=== PATIENT | female | born 1975 | race Caucasian/White ===

== ENCOUNTER → 2017-01-23 | Outpatient (REF) | payer OTHER ==
[~2017-01-23] MED LIST: ASTE0.15; BENZ-52 PO; CALC1TAB5 PO; CALC500T19 PO; CYMB60CA3 PO; DULO30CA PO; FISH1000 PO; FOLI1TAB4 PO; MONT10TA2 PO; MULT1TAB10 PO; OLAN5TAB PO; OMEG1400 PO; PRED10TA2 PO; REST0.05 OU; TRAZO50TA PO; VITA250011 SL; VITA500T3 PO; VITMTA PO; montelukast
[2017-01-23 11:58] LABS: BLOOD UREA NITROGEN 19 MG/DL (7-18); CREATININE FOR GFR 0.83 MG/DL (0.55-1.02); GLOMERULAR FILTRATION RATE > 60.0 (>60)
== END ==
LOC: M LABDRAW1 09:52
PROVIDERS: ATTEND Physical Medicine & Rehabilitation
DX: M47.816 Spondylosis without myelopathy or radiculopathy, lumbar region (principal)

== ENCOUNTER 2017-02-25 22:20 | Emergency (ER) | payer BC, MEDICAID ==
[~2017-02-25] VITALS: Ht 165.1 cm; Wt 82.7 kg
[2017-02-25] MEDS ORDERED: MULT1TAB10 PO (22:42)
[2017-02-25] MEDS ORDERED: VITA250011 SL (22:42)
[2017-02-25] MEDS ORDERED: ASTE0.15 (22:42)
[2017-02-25] MEDS ORDERED: FOLI1TAB4 PO (22:42)
[2017-02-25] MEDS ORDERED: montelukast (22:42)
[2017-02-25] MEDS ORDERED: CALC1TAB5 PO (22:42)
[2017-02-25] MEDS ORDERED: OMEG1400 PO (22:42)
[2017-02-25] MEDS ORDERED: REST0.05 OU (22:42)
[2017-02-26 00:07] VITALS: BP 134/76
[2017-02-26] MEDS ORDERED: VITMTA PO (21:27)
[2017-02-26] MEDS ORDERED: CYMB60CA3 PO (21:27)
[2017-02-26] MEDS ORDERED: VITA500T3 PO (21:27)
[2017-02-26] MEDS ORDERED: CALC500T19 PO (21:27)
[2017-02-26] MEDS ORDERED: FISH1000 PO (21:27)
[2017-02-26] MEDS ORDERED: MONT10TA2 PO (21:27)
[2017-02-26] MEDS ORDERED: PRED10TA2 PO (21:27)
== END 2017-02-26 00:12 | disposition home or self-care (01) ==
LOC: M ED 22:20
DX: F33.8 Other recurrent depressive disorders (principal); F17.210 Nicotine dependence, cigarettes, uncomplicated; Z88.1 Allergy status to other antibiotic agents; Z88.8 Allergy status to other drugs, medicaments and biological substances; Z88.5 Allergy status to narcotic agent; Z91.041 Radiographic dye allergy status; Z79.899 Other long term (current) drug therapy

== ENCOUNTER 2017-02-26 17:37 | Inpatient (IN) | payer BC, MEDICAID ==
[~2017-02-26] VITALS: Ht 165.1 cm; Wt 80.3 kg
[~2017-02-26 17:37] MED LIST changes: -BENZ-52 PO; -CALC500T19 PO; -CYMB60CA3 PO; -DULO30CA PO; -FISH1000 PO; -MONT10TA2 PO; -OLAN5TAB PO; -PRED10TA2 PO; -TRAZO50TA PO; -VITA500T3 PO; -VITMTA PO
[2017-02-26 19:13] LABS: MEAN CORPUSCULAR HEMOGLOBIN 32.3 pg (27.0-33.0); MEAN CORPUSCULAR VOLUME 92.1 fl (80.0-96.0); RED CELL DISTRIBUTION WIDTH 13.2 % (11.5-14.5)
[2017-02-26 19:36] LABS: CONTROL LINE HCG INT CTR LINE PRESENT
[2017-02-26 19:39] LABS: METHADONE URINE NEGATIVE (NEGATIVE)
[2017-02-26 19:47] LABS: ALBUMIN 3.9 GM/DL (3.2-5.2); ALBUMIN/GLOBULIN RATIO 1.39 (1.00-1.93); ALKALINE PHOSPHATASE 60 U/L (45-117); ALT/SGPT 21 U/L (12-78); ANION GAP 9 MEQ/L (8-16); AST/SGOT 10 U/L (15-37); BILIRUBIN,DIRECT 0.2 MG/DL (0.0-0.2); BILIRUBIN,TOTAL 0.6 MG/DL (0.2-1.0); BLOOD UREA NITROGEN 10 MG/DL (7-18); CALCIUM LEVEL 8.7 MG/DL (8.5-10.1); CARBON DIOXIDE LEVEL 26 MEQ/L (21-32); CHLORIDE LEVEL 106 MEQ/L (98-107); CREATININE FOR GFR 0.83 MG/DL (0.55-1.02); GLOMERULAR FILTRATION RATE > 60.0 (>60); GLUCOSE, FASTING 123 MG/DL (70-105); POTASSIUM SERUM 3.8 MEQ/L (3.5-5.1); SODIUM LEVEL 141 MEQ/L (136-145); TOTAL PROTEIN 6.7 GM/DL (6.4-8.2)
[2017-02-26] MEDS ORDERED: LORazepam 1 MG TAB PO ONE (20:30)
[2017-02-26] MEDS ORDERED: VITMTA PO (21:27)
[2017-02-26] MEDS ORDERED: CYMB60CA3 PO (21:27)
[2017-02-26] MEDS ORDERED: FISH1000 PO (21:27)
[2017-02-26] MEDS ORDERED: CALC500T19 PO (21:27)
[2017-02-26] MEDS ORDERED: MONT10TA2 PO (21:27)
[2017-02-26] MEDS ORDERED: PRED10TA2 PO (21:27)
[2017-02-26] MEDS ORDERED: VITA500T3 PO (21:27)
[2017-02-26] MEDS ORDERED: MOM 30ML SUSPENSION UDC PO PRN (21:30)
[2017-02-26] MEDS ORDERED: MAALOX 30 ML SUSP *UDC PO PRN (21:30)
[2017-02-26 23:00] VITALS: BP 124/76
[2017-02-27 07:23] VITALS: BP 127/55
[2017-02-27] MEDS: DULoxetine 30 MG CAP (CYMBALTA) PO SCH ×2 (09:00→12:47)
[2017-02-27] MEDS ORDERED: POLYVINYL ALCOHOL OPHTH SOLN 15 ML(LIQUITEARS) OU PRN (10:15)
--- NOTE | 2017-02-27 10:26 | HPEPDOC ---
Medical History and Physical Date of Admission Feb 26, 2017 at 21:22 History and Physical PCP: Dr Esqueda ATTENDING: Dr. Carlos Maloney HPI: 41 yo F admitted to [facility] for unspecified psychotic disorder, being medically examined today. No acute medical complaints today. The patient has a difficult time answering questions, much of history is taken from the chart. Denies any fevers, chills, weakness, fatigue, FLORES, CP, SOB, cough, palpitations , abdominal pain, N/V/D or changes in bowel or bladder habits. PMHx: Dry eye Allergic rhinitis Asthma Lupus/arthritis/fibromyalgia. Dr Hooks. Rheumatology [facility] Depression Anxiety Chronic back pain. Dr Cuco HOPKINS. PSHX: 2 Cholecystectomy Cyst removed left ovary Lumbar injections SOCHX: Resides in: [facility]. Living with girlfriend. Marital Status: Kids: 2. Girlfriend has 2 children living with them as well. Employment: Unemployed, Worker's Compensation for low back pain Tobacco use: Denies ETOH: One time per year, Pt states "whatever". Illicit Drugs: Marijuana 1 IV Drug Use: Denies Tattoos done unprofessionally: Denies FAMHX: Mother: Unknown Father: Alive, hypertension Siblings: One sister Alive, well Children: Alive, well Unexpected deaths due to medical reasons: None. ROS: As noted in HPI, otherwise 11pt ROS of systems reviewed and remarkable only for LMP unknown. PE: GEN: 41yoF, appears stated age. Well-nourished, well developed. No acute distress. Alert and oriented x 3. Tangential, difficult to answer questions. HEENT: Normocephalic, atraumatic. Pupils are equal, round, and reactive to light. Extraocular movements are intact. No nystagmus appreciated. Sclera are nonicteric. Conjunctiva without injection. Nose midline. Nasal turbinates without bogginess. EACs both patent BL. TMs both visualized and dias with good cone of light, no bulging or erythema. No facial asymmetry. Moist mucous membranes. Dentition fair. Pharynx pink and moist, no cobblestoning. Neck supple , trachea midline. No lymphadenopathy or thyromegaly appreciated. CHEST: Regular rate and rhythm, +S1, +S2 LUNGS: Clear to auscultation bilaterally. No wheezes, rales, or rhonchi. Breathing appears symmetric and easy. Patient is speaking in full sentences. No accessory muscle use. ABD: Round, soft, non-tender, non-distended. +Bowel sounds throughout. No rebound or guarding. No costovertebral angle tenderness. EXT: Pulses 2+ bilaterally dorsalis pedis and radial. No lower extremity edema appreciated. SKIN: [place], dry, warm. Capillary refill <2sec. No rashes. NEURO: Alert and oriented x 3. Cranial nerves III-XII are intact. No focal deficits appreciated. EKG: pending. A&P: 41 yo F admitted to [facility] for unspecified psychotic disorder 1. Psych. Plan per Psychiatry. Obtain baseline EKG to assure the safety of psychiatric medications as they can prolong the QT interval. Request UA/urine culture. Patient with no prior imaging available, request CT scan brain. 2. Leukocytosis. Patient is afebrile. Asymptomatic. Recheck CBC in a.m. 3. Allergic rhinitis. Continue Azelastine. Continue Singulair 10 mg daily. 4. Follow up with PCP on discharge. 5. History of lupus/arthritis/fibromyalgia. Patient states she uses prednisone 10 mg as needed for flareups of her lupus. She has not been taking this recently per patient. 6. History of chronic low back pain. Continue Tylenol 650 mg every 6 hours as needed. Continue outpatient follow-up with Dr. oNrwood [facility], for pain management. 7. Dry eyes. Continue artificial tears 3 times a day as needed. 8. Staff member Shannan TOURE present throughout exam. Vital Signs Vital Signs Date Time Temp Pulse Resp B/P (MAP) Pulse Ox O2 Delivery O2 Flow Rate FiO2 02/27/17 07:23 98.4 88 18 127/55 (79) Room Air 02/26/17 23:00 100 Laboratory Data Labs 24H Laboratory Tests 2 02/26/17 18:54: Anion Gap 9, Glomerular Filtration Rate > 60.0, Calcium Level 8.7, Aspartate Amino Transf (AST/SGOT) 10L, Alanine Aminotransferase (ALT/SGPT) 21, Alkaline Phosphatase 60, Total Bilirubin 0.6, Direct Bilirubin 0.2, Total Protein 6.7, Albumin 3.9, Albumin/Globulin Ratio 1.39, Thyroid Stimulating Hormone (TSH) 0.494, Human Chorionic Gonadotropin, Qual NEGATIVE, Salicylates Level < 1.7L, Urine Amphetamines Screen NEGATIVE, Urine Benzodiazepines Screen NEGATIVE, Urine Opiates Screen NEGATIVE, Urine Methadone Screen NEGATIVE, Acetaminophen Level < 2.0L, Urine Barbiturates Screen NEGATIVE, Urine Phencyclidine Screen NEGATIVE, Urine Cocaine Metabolite Screen NEGATIVE, Urine Cannabinoids Screen NEGATIVE, Ethyl Alcohol Level < 0.003 CBC/BMP Laboratory Tests 02/26/17 18:54 Red Blood Count 4.78, Mean Corpuscular Volume 92.1, Mean Corpuscular Hemoglobin 32.3, Mean Corpuscular Hemoglobin Concent 35.0, Red Cell Distribution Width 13.2 Home Medications Scheduled Azelastine Hydrochloride (Astepro) 0.15 % Spr, 2 SPRAY NA DAILY Calcium/Vitamin D (Calcium 500/D 500-200 mg-Unit) 1 Tab Tab, 1 TAB PO DAILY Cyanocobalamin (Vitamin B-12) 500 Mcg Tab, 500 MCG PO QHS Duloxetine Hcl (Cymbalta) 60 Mg Cap, 60 MG PO DAILY Fish Oil (Fish Oil) 1,000 Mg Cap, 1,000 MG PO QHS Folic Acid (Folic Acid) 1 Mg Tab, 1 MG PO QHS Montelukast Sodium (Montelukast Sodium) 10 Mg Tab, 10 MG PO QHS Multivitamins *[facility] STOCKED* (Thera M Plus *[facility] STOCKED*) 1 Tab Tab, 1 TAB PO DAILY Scheduled PRN (Restasis) 0.05 % Emu, 1 DROP OU BID PRN for DRY EYES Prednisone (Prednisone) 10 Mg Tab, 10 MG PO ASDIRECTED PRN for LUPUS FLAREUPS DOCTOR WILL STATE HOW MANY TABLETS TO TAKE BASED ON HOW BAD THE FLAREUPS ARE Allergies Coded Allergies: Iodipamide Meglumine (Verified Allergy, Severe, 02/25/17) Contrast Media (Verified Allergy, Intermediate, 02/25/17) Cyclobenzaprine (Verified Allergy, Intermediate, 02/25/17) Hydroxychloroquine (Verified Allergy, Intermediate, 02/25/17) Sulindac (Verified Allergy, Intermediate, 02/25/17) Tramadol (Verified Allergy, Intermediate, 02/25/17) Amoxicillin (Verified Allergy, Mild, 02/25/17) Barbara Chahal Feb 27, 2017 10:26
--- NOTE | 2017-02-27 12:19 | REP ---
CT Head without contrast HISTORY: Altered mental status COMPARISON: None There is no intraparenchymal hemorrhage, acute infarct, mass or midline shift. The ventricular system is normal in appearance. There is no extra cerebral collection. There is no fracture. The visualized sinuses are clear. IMPRESSION: There is no intracranial lesion. Signed by Myke Trammell MD 02/27/2017 12:11 P
[2017-02-27] MEDS: AZELASTINE 137MCG NASAL SPY 30 ML (ASTELIN) SCH (12:47)
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
[2017-02-27 18:00] VITALS: BP 118/62
[2017-02-27] MEDS: traZODone 50 MG TAB PO PRN (21:07)
[2017-02-27] MEDS: MONTELUKAST 10 MG TAB PO SCH (21:07)
[2017-02-27] MEDS: ACETAMINOPHEN TAB 650MG DOSE (2X325MG) PO PRN (21:13)
--- NOTE | 2017-02-27 21:54 | ECGEPIP ---
Stationary ECG Study [facility] Test Date: 2017-02-27 Pat Name: MESERET ADAMS Department: Room: [place] [address] Gender: F Christmas Bell Ringer: DEMARCO : 1975 Requested By: Barbara Chahal Order Number: [id number] Reading MD: Lasha Mathis Measurements Intervals [place] Rate: 65 P: 53 MD: 153 QRS: 52 QRSD: 86 T: 31 QT: 414 QTc: 431 Interpretive Statements SINUS RHYTHM MINIMAL EARLY REPOLARIZATION NOTED NO PRIOR TRACING IN THE SYSTEM Electronically Signed On 02-27-2017 21:53:59 EDT by Lasha Mathis
[2017-02-28] MEDS ORDERED: LORazepam 2 MG TAB PO ONE (06:15)
[2017-02-28] MEDS ORDERED: HALOPERIDOL 5 MG TAB PO ONE (06:15)
[2017-02-28] MEDS ORDERED: diphenhydrAMINE 50 MG CAP PO ONE (06:15)
[2017-02-28 07:00] VITALS: BP 122/92
[2017-02-28 08:00] LABS: BASO # 0.1 K/mm3 (0.0-0.2); BASO % 0.6 % (0.0-1.0); EOS % 0.5 % (0.0-3.0); LARGE UNSTAINED CELL # 0.1 K/mm3 (0.0-0.4); LARGE UNSTAINED CELL % 0.7 % (0.0-4.0); LYMPH # 1.8 K/mm3 (1.5-4.5); LYMPH % 16.8 % (24.0-44.0); MEAN CORPUSCULAR HEMOGLOBIN 33.2 pg (27.0-33.0); MEAN CORPUSCULAR HGB CONC 35.9 g/dl (32.0-36.5); MEAN CORPUSCULAR VOLUME 92.6 fl (80.0-96.0); MONO # 0.6 K/mm3 (0.0-0.8); MONO % 5.4 % (0.0-5.0); PLATELET COUNT, AUTOMATED 227 k/mm3 (150-450); RED CELL DISTRIBUTION WIDTH 13.3 % (11.5-14.5); WHITE BLOOD COUNT 10.5 K/mm3 (4.0-10.0)
[2017-02-28] MEDS ORDERED: ARIPiprazole 2 MG TAB PO SCH (09:00)
[2017-02-28] MEDS: AZELASTINE 137MCG NASAL SPY 30 ML (ASTELIN) SCH (09:00)
[2017-02-28] MEDS: DULoxetine 30 MG CAP (CYMBALTA) PO SCH (09:38)
[2017-02-28 11:47] LABS: MICROSCOPIC INDICATED? MAN YES (NO)
[2017-02-28 11:50] LABS: MICROSCOPIC EXAM PERFORMED
[2017-02-28 11:51] LABS: BACTERIA, URINE LARGE AMOUNT; HYALINE CAST, URINE NONE SEEN /lpf (0-1); SQUAMOUS EPITHELIAL CELL URINE LARGE AMOUNT /hpf (SMALL AMT); WBC, URINE 0-1 /hpf (0-3)
--- NOTE | 2017-02-28 13:58 | MHIPNPDOC ---
[facility] Progress Note Progress Note DATE OF SERVICE: 02/28/17 HISTORY: day 3 of admission for gross decompensation including depression with psychosis. Pt has h/o bipolar disorder. VITAL SIGNS: See below. NEW TEST RESULTS: na CURRENT MEDICATIONS: See below. MENTAL STATUS EXAMINATION: Patient is a 41-year old female, who is petite, appears frightened like a deer in headlights, is internally preoccupied and focused and unable to function even marginally well. Speech: Is soft and delayed responses Language skills are adequate Thought processes including: disorganized, illogical, tangential, irrational. some thought blocking evident. Thought content: paranoid, self-condemning. Abstract reasoning, and computation : poor. Description of associations: needs further assessment. Description of abnormal or psychotic thoughts: pt stripped naked for unknown reason several times last night, pt required oral medication for calming, pt not in control of actions, pt clearly psycohtic and unable to care for self.. Judgment: impaired Insight:very limited. Orientation: Recent and remote memory: impaired Attention span and concentration: poor Fund of knowledge: impaired. Mood: anxious. Affect: congruent DIAGNOSES: 1. Bipolar disorder, current episode depressed, recurrent with psychotic features. 2. Panic disorder by history 3. H/o Alcohol abuse ASSESSMENT:pt moved to room closer to nurses station. pt in bed with covers around her when meeting for 1:1. She continues to express paranoia and fear of the future. She was awake much of the night disrobing. Staff was very attentive to her needs and prn agitation meds were provided and accepted by pt including Haldol. She calmed but remains grossly disorganized and paranoid. Pt was assisted with showering today. She has been placed on 1:1 observation after her difficult night last night but that can be discontinued now after my second meeting with her today. She presents as a little more oriented and aware of her surroundings. Her conversation made more sense than yesterday. Pt encouraged to rest while medications take effect and until she feels more clear headed. Her was contacted for collateral information. He reports that using olanzapine has helped her thought process to clear. He has known about her condition as she was dx at 21 yo with Bipolar disorder. He states she has had her ups and downs, including 4 psych admissions, 2 in [place] and 2 in [place]. She visited him in [place] over Leanne with the children. He is attending school in [place] and nearly finished. He indicates that the plan was Crystal and the children would be returning to [place] when he was done with school and he confirms that was the plan prior to admission. It is unclear if Lesley was living at the home over the last couple months. It is possible that in the process of terminating the relationship with Lesley, Ellen decompensated from the stress. Also her adherence to medication appears in question. Records from [facility] have not been received as of this writing. MANAGEMENT PLAN: discontinue Abilify, replace with Olanzapine at 5 mg. Begin tonight. change observation from to 1:1 back to close obs. Continue reassurance that patient will get better. Reassure her that her children are safe, they are staying with their Uncle. I have changed the order permitting Lesley to visit to no visitation. Pt needs to become more integrated emotionally before having visitors and Lesley falls under the 6 week restriction. Monitor PO intake to ensure pt eats at most meals. Enc her to be out of room as tolerated. TIME SPENT: 25 minutes. Vital Signs Vital Signs Date Time Temp Pulse Resp B/P (MAP) Pulse Ox O2 Delivery O2 Flow Rate FiO2 02/28/17 07:00 97.9 91 18 122/92 (102) 02/27/17 07:23 Room Air 02/26/17 23:00 100 Laboratory Data 24H Labs Laboratory Tests 2 02/28/17 07:29: White Blood Count 10.5H, Red Blood Count 4.67, Hemoglobin 15.5, Hematocrit 43.2 , Mean Corpuscular Volume 92.6, Mean Corpuscular Hemoglobin 33.2H, Mean Corpuscular Hemoglobin Concent 35.9, Red Cell Distribution Width 13.3, Platelet Count 227, Neutrophils (%) (Auto) 76.0H, Lymphocytes (%) (Auto) 16.8L, Monocytes (%) (Auto) 5.4H, Eosinophils (%) (Auto) 0.5, Basophils (%) (Auto) 0.6 , Neutrophils # (Auto) 8.0H, Lymphocytes # (Auto) 1.8, Monocytes # (Auto) 0.6, Eosinophils # (Auto) 0.0, Basophils # (Auto) 0.1, Large Unclassified Cells % 0.7 , Large Unclassified Cells # 0.1 02/28/17 10:10: Bedside Urine Color (LAB) YELLOW, Bedside Urine Appearance (LAB) HAZYH, Bedside Urine pH (LAB) 5.5, Bedside Urine Specific Rubicon (LAB 1.018, Bedside Urine Protein (LAB) NEGATIVE, Bedside Urine Glucose (UA) NEGATIVE, Bedside Urine Ketones (LAB) NEGATIVE, Bedside Urine Blood POSITIVEH, Bedside Urine Nitrite ( LAB) NEGATIVE, Bedside Urine Bilirubin (LAB) NEGATIVE, Bedside Urine Urobilinogen (LAB) NORMAL, Bedside Urine Leukocyte Esterase (L NEGATIVE, Urine WBC 0-1, Urine RBC 3-5H, Urine Squamous Epithelial Cells LARGE AMOUNTH, Urine Bacteria LARGE AMOUNTH, Urine Hyaline Casts NONE SEEN, Urine Mucus LARGE AMOUNTH , Urine Sediment Examination PERFORMED CBC/BMP Laboratory Tests 02/28/17 07:29 Red Blood Count 4.67, Mean Corpuscular Volume 92.6, Mean Corpuscular Hemoglobin 33.2 H, Mean Corpuscular Hemoglobin Concent 35.9, Red Cell Distribution Width 13.3, Neutrophils (%) (Auto) 76.0 H, Lymphocytes (%) (Auto) 16.8 L, Monocytes (% ) (Auto) 5.4 H, Eosinophils (%) (Auto) 0.5, Basophils (%) (Auto) 0.6, Neutrophils # (Auto) 8.0 H, Lymphocytes # (Auto) 1.8, Monocytes # (Auto) 0.6, Eosinophils # (Auto) 0.0, Basophils # (Auto) 0.1 Current Medications Current Medications Acetaminophen (Tylenol Tab) 650 mg Q6HP PRN PO HEADACHE or DISCOMFORT Last administered on 02/27/17 21:13; Start 02/26/17 at 21:30; Stop 03/28/17 at 21:29 Al Hydrox/Mg Hydrox/Simethicone (Mylanta) 30 ml Q4HP PRN PO HEARTBURN/ INDIGESTION; Start 02/26/17 at 21:30; Stop 03/28/17 at 21:29 Aripiprazole (AbiLIFY) 2 mg QAM PO Last administered on 02/28/17 09:37; Start 02/28/17 at 09:00; Stop 02/28/17 at 12:15; Status DC Artificial Tears (Akwa Tears) 2 drop TIDP PRN OU DRY EYES; Start 02/27/17 at 10 :15; Stop 03/29/17 at 10:14 Azelastine HCl (Astelin) 2 spray DAILY NA Last administered on 02/27/17 12:47 ; Start 02/27/17 at 09:00; Stop 03/29/17 at 08:59 Duloxetine HCl (Cymbalta) 60 mg QAM PO Last administered on 02/28/17 09:38; Start 02/27/17 at 09:00; Stop 03/29/17 at 08:59 Home Med (Med Rec Complete!) ASDIRECTED XX ; Start 02/26/17 at 21:30; Stop at 21:30; Status DC Magnesium Hydroxide (Milk Of Magnesia) 30 ml DAILYPRN PRN PO CONSTIPATION Last administered on 02/27/17 21:07; Start 02/26/17 at 21:30; Stop 03/28/17 at 21:29 Montelukast Sodium (Singulair) 10 mg QHS PO Last administered on 02/27/17 21: 07; Start 02/27/17 at 21:00; Stop 03/29/17 at 20:59 Olanzapine (ZyPREXA) 5 mg QHS PO ; Start 02/28/17 at 21:00; Stop 03/30/17 at 20: 59 Trazodone HCl (Desyrel) 50 mg QHSP PRN PO INSOMNIA Last administered on 21:07; Start 02/26/17 at 21:30; Stop 03/28/17 at 21:29 Allergies Coded Allergies: Iodipamide Meglumine (Verified Allergy, Severe, 02/25/17) Contrast Media (Verified Allergy, Intermediate, 02/25/17) Cyclobenzaprine (Verified Allergy, Intermediate, 02/25/17) Hydroxychloroquine (Verified Allergy, Intermediate, 02/25/17) Sulindac (Verified Allergy, Intermediate, 02/25/17) Tramadol (Verified Allergy, Intermediate, 02/25/17) Amoxicillin (Verified Allergy, Mild, 02/25/17) Dina Choudhury Feb 28, 2017 13:57
[2017-02-28 18:00] VITALS: BP 130/86
[2017-02-28] MEDS: MONTELUKAST 10 MG TAB PO SCH (22:10)
[2017-02-28] MEDS: OLANZapine 5 MG TAB PO SCH (22:10)
[2017-02-28] MEDS: ACETAMINOPHEN TAB 650MG DOSE (2X325MG) PO PRN (22:11)
[2017-02-28] MEDS: traZODone 50 MG TAB PO PRN (23:47)
[2017-03-01 06:41] VITALS: BP 132/65
[2017-03-01] MEDS: DULoxetine 30 MG CAP (CYMBALTA) PO SCH (09:40)
[2017-03-01] MEDS: AZELASTINE 137MCG NASAL SPY 30 ML (ASTELIN) SCH (09:40)
[2017-03-01 18:27] VITALS: BP 123/89
[2017-03-01] MEDS: MONTELUKAST 10 MG TAB PO SCH (20:31)
[2017-03-01] MEDS: traZODone 50 MG TAB PO PRN (20:31)
[2017-03-01] MEDS: OLANZapine 5 MG TAB PO SCH (20:31)
[2017-03-02] MEDS ORDERED: LORazepam 1 MG TAB PO STA (03:01)
[2017-03-02 06:30] VITALS: BP 109/55
[2017-03-02] MEDS: DULoxetine 30 MG CAP (CYMBALTA) PO SCH (09:23)
[2017-03-02] MEDS: AZELASTINE 137MCG NASAL SPY 30 ML (ASTELIN) SCH (09:23)
[2017-03-02] MEDS ORDERED: OLANZapine ORAL DISINTEGRATING TAB 5MG PO PRN (13:00)
--- NOTE | 2017-03-02 15:02 | MHIPN ---
DATE: 03/01/2017 The patient today states that she is not hearing any voices today. She is really minimizing everything, however, and basically states that she was just feeling a little confused and that is what happens when she gets stressed out. She has no complaints. MENTAL STATUS EXAMINATION: The patient is alert and oriented times three. Eye contact is fair. Psychomotor activity is decreased. There is no formal thought disorder noted. Her mood is "okay." Affect is flat. She is not suicidal or homicidal. She continues to be delusional, although it is less intense at this point. Concentration is fair. Insight and judgment poor. DIAGNOSIS: Bipolar disorder type 1, depressed with psychotic symptoms. TREATMENT PLAN: At this point, we will further observe and evaluate this patient for continued resolution of the psychotic symptoms and we will continue to titrate her medications as indicated.
[2017-03-02 18:32] VITALS: BP 132/71
[2017-03-02] MEDS: OLANZapine 5 MG TAB PO SCH (21:44)
[2017-03-02] MEDS: MONTELUKAST 10 MG TAB PO SCH (21:44)
[2017-03-02] MEDS: traZODone 50 MG TAB PO PRN (21:45)
[2017-03-02] MEDS: ACETAMINOPHEN TAB 650MG DOSE (2X325MG) PO PRN (21:52)
--- NOTE | 2017-03-03 06:35 | MHIPN ---
DATE: 03/02/2017 The patient states "I'm doing pretty good" and she says that she is feeling some anxiety and wants me to prescribe something for anxiety. Her thinking does appear to be less disorganized today. MENTAL STATUS EXAMINATION: She is alert and oriented times three. Eye contact is fair. Psychomotor activity is normal. There is no formal thought disorder noted. Mood is good. She appears to be less delusional. Concentration is fair, not suicidal or homicidal. Insight and judgment are fair. DIAGNOSIS: Bipolar disorder type 1, depressed, recurrent with psychotic symptoms. TREATMENT PLAN: She is complaining of anxiety so I did write for as needed Zyprexa 5 mg. She is already on Zyprexa 5 mg at bedtime. We will continue to monitor her for continued resolution of her psychotic symptoms. Edited 03/03/2017 @ 1322 surinder CONKLIN
[2017-03-03 07:09] VITALS: BP 118/69
[2017-03-03] MEDS: DULoxetine 30 MG CAP (CYMBALTA) PO SCH (08:15)
[2017-03-03] MEDS: AZELASTINE 137MCG NASAL SPY 30 ML (ASTELIN) SCH (08:15)
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
[2017-03-03] MEDS: ACETAMINOPHEN TAB 650MG DOSE (2X325MG) PO PRN (09:55)
[2017-03-03] MEDS ORDERED: BENZTROPINE 1 MG TAB PO PRN (11:30)
[2017-03-03 18:00] VITALS: BP 122/73
[2017-03-03] MEDS: OLANZapine 5 MG TAB PO SCH (20:49)
[2017-03-03] MEDS: MONTELUKAST 10 MG TAB PO SCH (20:50)
[2017-03-03] MEDS ORDERED: OLANZapine 10 MG TAB PO SCH (21:00)
[2017-03-04] MEDS: traZODone 50 MG TAB PO PRN
[2017-03-04 06:55] VITALS: BP 125/74
[2017-03-04] MEDS ORDERED: BENZTROPINE 1 MG TAB PO PRN (08:30)
[2017-03-04] MEDS: AZELASTINE 137MCG NASAL SPY 30 ML (ASTELIN) SCH (08:33)
[2017-03-04] MEDS: DULoxetine 30 MG CAP (CYMBALTA) PO SCH (08:33)
[2017-03-04] MEDS: ACETAMINOPHEN TAB 650MG DOSE (2X325MG) PO PRN ×2 (11:26→21:29)
--- NOTE | 2017-03-04 12:51 | MHIPNPDOC ---
[facility] Progress Note Progress Note DATE OF SERVICE: 03/04/17 HISTORY: day 7 of admission for psychosis/depression VITAL SIGNS: See below. NEW TEST RESULTS: na. CURRENT MEDICATIONS: See below. MENTAL STATUS EXAMINATION: Patient is a 41-year old female, who is appropriately attired in street clothes , well groomed, smiling, good eye contact. Speech: Is logical, clear, spontaneous. Language skills are good. Thought processes including: goal directed. No thought blocking as before. Thought content: appropriate. Abstract reasoning, and computation: good . Description of associations: good. Description of abnormal or psychotic thoughts: no delusions, paranoia or FOI. Pt is not DTS or DTO. Judgment: good. Insight: good, Orientation: oriented in all spheres. Recent and remote memory: intact Attention span and concentration: limited, easily fatigued and stressed. Fund of knowledge: Improving, approaching full. Mood: anxious. Affect: anxious DIAGNOSES: 1. Bipolar disorder, current episode depressed, recurrent with psychotic features. 2. Panic disorder by history 3. H/o Alcohol abuse ASSESSMENT:pt is very much improved since the introduction of Zyprexa. The medication causes some akathesia and Cogentin has helped her feel more relaxed. She slept well last night. She is preparing for discharge and attended team conference today. The plan is to have her family come in so we discuss a stress free living situation for Ellen after discharge. We will try to get an understanding in place of what needs to happen to keep Ellen from returning to the hospital. Pt is agreeable to taking Zyprexa as prescribed after discharge. She needs help with limit setting and putting herself first during this time. Pt is future oriented, better organized in her thinking and able to formulate plans. She is visible on the unit and gets along well with all. No inappropriate behaviors or bizarre statements. No longer religiously preoccupied. MANAGEMENT PLAN: continue meds, monitor akathesia, continue close observation, group participation, milieu therapy, good attention to hygiene. We are in the process of scheduling a discharge planning meeting that hopefully will happen this week. TIME SPENT: 25 minutes. Vital Signs Vital Signs Date Time Temp Pulse Resp B/P (MAP) Pulse Ox O2 Delivery O2 Flow Rate FiO2 03/04/17 06:55 97.5 62 16 125/74 (91) Room Air 02/26/17 23:00 100 Current Medications Current Medications Acetaminophen (Tylenol Tab) 650 mg Q6HP PRN PO HEADACHE or DISCOMFORT Last administered on 03/04/17 11:26; Start 02/26/17 at 21:30; Stop 03/28/17 at 21:29 Al Hydrox/Mg Hydrox/Simethicone (Mylanta) 30 ml Q4HP PRN PO HEARTBURN/ INDIGESTION; Start 02/26/17 at 21:30; Stop 03/28/17 at 21:29 Aripiprazole (AbiLIFY) 2 mg QAM PO Last administered on 02/28/17 09:37; Start 02/28/17 at 09:00; Stop 02/28/17 at 12:15; Status DC Artificial Tears (Akwa Tears) 2 drop TIDP PRN OU DRY EYES; Start 02/27/17 at 10 :15; Stop 03/29/17 at 10:14 Azelastine HCl (Astelin) 2 spray DAILY NA Last administered on 03/04/17 08:33 ; Start 02/27/17 at 09:00; Stop 03/29/17 at 08:59 Benztropine Mesylate (Cogentin) 1 mg Q8HP PRN PO EPS Last administered on 22:12; Start 03/03/17 at 11:30; Stop 03/04/17 at 08:25; Status DC Benztropine Mesylate (Cogentin) 2 mg Q8HP PRN PO EPS; Start 03/04/17 at 08:30; Stop 04/03/17 at 08:29 Duloxetine HCl (Cymbalta) 60 mg QAM PO Last administered on 03/04/17 08:33; Start 02/27/17 at 09:00; Stop 03/29/17 at 08:59 Home Med (Med Rec Complete!) ASDIRECTED XX ; Start 02/26/17 at 21:30; Stop at 21:30; Status DC Lorazepam (Ativan) 1 mg STAT STAT PO Last administered on 03/02/17 03:07; Start 03/02/17 at 03:01; Stop 03/02/17 at 03:02; Status DC Magnesium Hydroxide (Milk Of Magnesia) 30 ml DAILYPRN PRN PO CONSTIPATION Last administered on 02/27/17 21:07; Start 02/26/17 at 21:30; Stop 03/28/17 at 21:29 Montelukast Sodium (Singulair) 10 mg QHS PO Last administered on 03/03/17 20: 50; Start 02/27/17 at 21:00; Stop 03/29/17 at 20:59 Olanzapine (ZyPREXA ZYDIS) 5 mg Q4HP PRN PO ANXIETY/AGITATION Last administered on 03/02/17 15:55; Start 03/02/17 at 13:00; Stop 04/01/17 at 12:59 Olanzapine (ZyPREXA) 5 mg QHS PO Last administered on 03/02/17 21:44; Start at 21:00; Stop 03/03/17 at 09:15; Status DC Olanzapine (ZyPREXA) 5 mg QHS PO Last administered on 03/03/17 20:49; Start at 21:00; Stop 04/02/17 at 20:59 Olanzapine (ZyPREXA) 10 mg QHS PO ; Start 03/03/17 at 21:00; Stop 04/02/17 at 20 :59; Status Cancel Trazodone HCl (Desyrel) 50 mg QHSP PRN PO INSOMNIA Last administered on 00:00; Start 02/26/17 at 21:30; Stop 03/28/17 at 21:29 Allergies Coded Allergies: Iodipamide Meglumine (Verified Allergy, Severe, 02/25/17) Contrast Media (Verified Allergy, Intermediate, 02/25/17) Cyclobenzaprine (Verified Allergy, Intermediate, 02/25/17) Hydroxychloroquine (Verified Allergy, Intermediate, 02/25/17) Sulindac (Verified Allergy, Intermediate, 02/25/17) Tramadol (Verified Allergy, Intermediate, 02/25/17) Amoxicillin (Verified Allergy, Mild, 02/25/17) Dina Choudhury Mar 04, 2017 12:51
[2017-03-04 18:00] VITALS: BP 136/92
[2017-03-04] MEDS: MONTELUKAST 10 MG TAB PO SCH (20:38)
[2017-03-04] MEDS: OLANZapine 5 MG TAB PO SCH (20:39)
[2017-03-05 06:52] VITALS: BP 117/59
[2017-03-05] MEDS ORDERED: TRAZO50TA PO (08:45)
[2017-03-05] MEDS ORDERED: DULO30CA PO (08:45)
[2017-03-05] MEDS ORDERED: BENZ-52 PO (08:45)
[2017-03-05] MEDS ORDERED: OLAN5TAB PO (08:45)
[2017-03-05] MEDS: AZELASTINE 137MCG NASAL SPY 30 ML (ASTELIN) SCH (09:01)
[2017-03-05] MEDS: DULoxetine 30 MG CAP (CYMBALTA) PO SCH (09:01)
[2017-03-05] MEDS: ACETAMINOPHEN TAB 650MG DOSE (2X325MG) PO PRN (09:03)
--- NOTE | 2017-03-05 14:30 | MHDSPDOC ---
[facility] Discharge Summary Discharge Summary DATE OF ADMISSION: Feb 26, 2017 at 21:22 DATE OF DISCHARGE: Mar 05, 2017 at 11:15 DISCHARGE DIAGNOSES: 1. Bipolar disorder, current episode depressed, recurrent with psychotic features. 2. Panic disorder by history 3. H/o Alcohol abuse 4. Chronic pain REASON FOR ADMISSION: decompensation after med change and increasing stress. CONSULTANTS INVOLVED: Medicine, psychiatry. TREATMENT AND PROGRESS ON THE UNIT : Pt presented very disorganized and thought blocking present. Pt was tangential and illogical at times. She was unable to clearly state her needs. She was using paper towel in her panties during her period. She had stripped off her clothing several times. She would break out in hymn singing. She described herself as full of fear and was religiously preoccupied. After consultation with her she was started on Zyprexa which had been ordered for her in the past but stopped by her provider, Yanna Dill, who did not think Ellen has bipolar disorder. She was also prescribed Phentamine for weight loss associated with Zyprexa. Pt became quite manic - not sleeping, unable to complete what she started, paranoid and overwhelmed. She then became depressed and out of fear for herself and her children she was admitted to the hospital to prevent further decompensation. She reconstituted quite quickly once Zyprexa was in her system. HOSPITAL COURSE:Pts thought process became very clear, much more organized and thought blocking ended. Pt spoke in complete sentences that were logical and meaningful. She had c/o hearing her mothers voice but that stopped. She was no longer religiously preoccupied. She socialized with peers and took good care of her adl's. Her paranoia went away. She was able to participate in discharge planning and agreed to a family meeting. She ate regularly, started to sleep through the night and she showed interest in others. DISCHARGE ASSESSMENT: Her family will support the plan that Ellen has chosen. That is for Ellen and her children to remain with family until her former GF vacates the Apartment that is in Ellen's name. Both Ellen's sister Velma and Brother Ruslan arrived for a discharge planning meeting today. Sister plans to transport Ellen to her home upon discharge and she can visit her children who are at their grandparents. There was some concern during the admission that her GF had friends over to Ellen's apartment and some pot smoking may have been going on. Ellen wants to find out if somehow the GF got herself on the lease and if so she (Ellen) will find a new apartment for next month. She wants some time with just her children to sort out her next move in life. She says she is ready for the divorce and if at sometime she and her get back together than so be it. Her family was supportive and helped her identify warning sings of what she needs to be aware of that suggest she is decompensating again. MENTAL STATUS EXAMINATION ON DISCHARGE: Patient is a 41-year old female, who is short in stature, short light hair, glasses, dressed in street clothes, cooperative . Speech is spontaneous Language skills are good. Thought processes including: goal directed. Thought content: appropriate Abstract reasoning, and computation: good. Description of associations: good Description of abnormal or psychotic thoughts: no psychotic symptoms illicited, no SI Judgment: good. Insight: good. Orientation to person, place, time and surroundings. Recent and remote memory: intact. Attention span and concentration: adequate. Fund of knowledge: Full. Mood: anxious Affect: congruent MEDICATIONS ON DISCHARGE: - zyprexa for mood/psychosis - trazodone for sleep - prn - cymbalta for mood. cogentin, for EPS/Akathesia PLAN/FOLLOWUP ARRANGEMENTS: Jomar MORRISON, PCP for lupus, fibromyalgia and arthritis and back pain. The amount of time spent in the coordination of care for this patient was approximately 27 minutes. Vital Signs/I&Os Vital Signs Date Time Temp Pulse Resp B/P (MAP) Pulse Ox O2 Delivery O2 Flow Rate FiO2 03/05/17 06:52 98.0 57 16 117/59 (78) 03/04/17 06:55 Room Air Laboratory Data Microbiology Microbiology 02/28/17 Urine Culture - Final, Complete Medications Scheduled Azelastine Hydrochloride (Astepro) 0.15 % Spr, 2 SPRAY NA DAILY, (Reported) Calcium/Vitamin D (Calcium 500/D 500-200 mg-Unit) 1 Tab Tab, 1 TAB PO DAILY, ( Reported) Cyanocobalamin (Vitamin B-12) 500 Mcg Tab, 500 MCG PO QHS, (Reported) Duloxetine Hcl (Cymbalta) 60 Mg Cap, 60 MG PO DAILY, (Reported) Duloxetine Hcl (Cymbalta) 30 Mg Cap, 60 MG PO QAM for MOOD for 7 Days, #14 Fish Oil (Fish Oil) 1,000 Mg Cap, 1,000 MG PO QHS, (Reported) Folic Acid (Folic Acid) 1 Mg Tab, 1 MG PO QHS, (Reported) Montelukast Sodium (Montelukast Sodium) 10 Mg Tab, 10 MG PO QHS, (Reported) Multivitamins *[facility] STOCKED* (Thera M Plus *[facility] STOCK[facility]*) 1 Tab Tab, 1 TAB PO DAILY, (Reported) Olanzapine (Olanzapine) 5 Mg Tab, 5 MG PO QHS for MOOD for 7 Days, #7 Scheduled PRN (Restasis) 0.05 % Emu, 1 DROP OU BID PRN for DRY EYES, (Reported) Benztropine Mesylate (Benztropine Mesylate) 1 Mg Tab, 2 MG PO Q8HP PRN for EPS for 7 Days, #24 Prednisone (Prednisone) 10 Mg Tab, 10 MG PO ASDIRECTED PRN for LUPUS FLAREUPS, ( Reported) DOCTOR WILL STATE HOW MANY TABLETS TO TAKE BASED ON HOW BAD THE FLAREUPS ARE Trazodone HCl (Trazodone HCl) 50 Mg Tab, 50 MG PO QHSP PRN for INSOMNIA for 7 Days, #7 only take if needed for sleep. Allergies Coded Allergies: Iodipamide Meglumine (Verified Allergy, Severe, 02/25/17) Contrast Media (Verified Allergy, Intermediate, 02/25/17) Cyclobenzaprine (Verified Allergy, Intermediate, 02/25/17) Hydroxychloroquine (Verified Allergy, Intermediate, 02/25/17) Sulindac (Verified Allergy, Intermediate, 02/25/17) Tramadol (Verified Allergy, Intermediate, 02/25/17) Amoxicillin (Verified Allergy, Mild, 02/25/17) Dina Choudhury Mar 05, 2017 14:30
== END 2017-03-05 11:15 | disposition home or self-care (01) | DRG 753 ==
LOC: M ED 17:37 → M ED INP 21:22 → M PSY 23:05
PROVIDERS: ADMIT Psychiatry & Neurology Psychiatry; ATTEND Psychiatry & Neurology Psychiatry
DX: F31.5 Bipolar disorder, current episode depressed, severe, with psychotic features (principal); D72.829 Elevated white blood cell count, unspecified; F41.0 Panic disorder [episodic paroxysmal anxiety]; Z79.899 Other long term (current) drug therapy; Z88.0 Allergy status to penicillin; Z88.8 Allergy status to other drugs, medicaments and biological substances; Z91.041 Radiographic dye allergy status; M54.5 Low back pain; J30.9 Allergic rhinitis, unspecified

== ENCOUNTER → 2017-05-02 | Outpatient (CLI) | payer OTHER ==
[~2017-05-02] MED LIST changes: +BENZ-52 PO; +CALC500T19 PO; +CYMB60CA3 PO; +DULO30CA PO; +FISH1000 PO; +MONT10TA2 PO; +OLAN5TAB PO; +PRED10TA2 PO; +PROHANCE 279.3MG/ML 15ML VIAL (A9576) As Ordered ONE; +PROHANCE 279.3MG/ML 5ML VIAL (A9576) As Ordered ONE; +TRAZO50TA PO; +VITA500T3 PO; +VITMTA PO
--- NOTE | 2017-05-03 10:30 | REP ---
MRI lumbar spine without contrast: History: Spondylosis, disc degeneration. History of injury 2014 with low back pain and numbness in both legs. Comparison is made with images from CT study July 07, 2016 and prior MRI examination from February 27, 2015. This prior study was performed at [facility]. Technique: Sagittal and axial T1 and T2-weighted scans are acquired in the usual fashion with and without fat saturation. Sequences include spin echo, turbo spin-echo, and STIR imaging sequences. MRI findings: Cortical and medullary bone signal intensity are normal. Vertebral body heights are preserved. There is some straightening. Conus medullaris remains normal in position and appearance at L1. Normal caliber aorta. No extra vertebral abnormality. At L1-2 there is no significant abnormality. The L2-3 disc level is unremarkable as well. At L3-4 there is decreased disc space height and signal intensity and axial and sagittal images show mild diffuse disc bulging of the L3-4 disc unchanged from the comparison study of February 27, 2015. There is some posterior osteophytic ridging which is mild. Indents the ventral margin of the thecal sac. Canal size is adequate. There is exiting nerve root compression on the right at the neural foraminal level due to disc bulging. This is unchanged from the comparison study. At L4-5, there is decreased disc space height and signal intensity. Diffuse disc bulging is seen. There is a left foraminal disc protrusion producing neural foraminal narrowing. Disc bulging on the right foraminal disc segment produces mild neural foraminal narrowing on the right as well. There is mild facet hypertrophy bilaterally. Canal size is adequate. The left foraminal disc protrusion is a new finding at L4-5 when compared with the February 27, 2015 study. At L5-S1, there is mild facet hypertrophy unchanged. No disc protrusion is seen. No neural foraminal encroachment. Impression: Degenerative disc and facet changes at L3-4 and L4-5. On the left at L4-5 there is new foraminal encroachment due to a left foraminal disc protrusion. Mild stable neural foraminal narrowing is seen at L3-4 bilaterally and at L4-5 on the right. Signed by Constantino Tello MD 05/03/2017 02:16 P
== END ==
LOC: M RAD 15:53
PROVIDERS: ATTEND Physical Medicine & Rehabilitation
DX: M51.36 Other intervertebral disc degeneration, lumbar region (principal); M47.896 Other spondylosis, lumbar region
CPT/HCPCS: 72148; A9576

== ENCOUNTER → 2018-06-03 | Outpatient (REF) | payer OTHER ==
[2018-06-03 16:24] LABS: PLATELET COUNT, AUTOMATED 243 10^3/uL (150-450)
[2018-06-03 16:34] LABS: INR 0.98
[2018-06-03 16:35] LABS: PARTIAL THROMBOPLASTIN TIME 28.5 SECONDS (25.4-37.6)
== END ==
LOC: M LABDRAW1 15:42
DX: Z79.01 Long term (current) use of anticoagulants (principal)

== ENCOUNTER → 2018-07-15 | Outpatient (CLI) | payer OTHER ==
[~2018-07-15] MED LIST changes: +FOLI1TAB11 PO; -FOLI1TAB4 PO; -PROHANCE 279.3MG/ML 15ML VIAL (A9576) As Ordered ONE; -PROHANCE 279.3MG/ML 5ML VIAL (A9576) As Ordered ONE
--- NOTE | 2018-07-16 07:42 | REP ---
MRI LUMBAR SPINE WITHOUT CONTRAST: History: Degenerative disc disease in the lumbar region. Comparison is made with prior MRI study images from 02/27/2015. Technique: Sagittal and axial T1 and T2-weighted scans are acquired in the usual fashion with and without fat saturation. Sequences include spin echo, turbo spin-echo, and STIR imaging sequences. MRI findings: Normal caliber aorta is seen. No extra vertebral abnormality is noted. There is straightening of the normal lumbar lordosis. Degenerative disc narrowing and decreased signal intensity is visible at L3-4 and L4-5, consistent with degenerative disc disease changes at these levels. The tip of the conus is normal in position and appearance at T12-L1, unchanged. Other disc spaces are maintained. Sagittal and axial images at the L3-4 disc show diffuse disc bulging. This indents the ventral margin of the thecal sac and is more prominent than on the 2015 prior study. There is no overall canal stenosis. Midline AP dimension of the thecal sac is 10 mm at this level. There is neural foraminal narrowing from right foraminal and right lateral disc protrusion at this L3-4 disc level. This appears slightly more prominent. At L4-5, there is diffuse disc bulging. Bilateral facet and ligamentum flavum hypertrophy are present at L4-5. There is bilateral foraminal disc bulging, producing mild neural foraminal encroachment. This is felt to be unchanged from the comparison study from 2014. At L5-S1, there is mild bilateral facet hypertrophy, which is unchanged. Exam is otherwise unremarkable. IMPRESSION: Degenerative disc changes at L3-4 and L4-5. There is bilateral L4-5 neural foraminal encroachment, which is mild and unchanged. There is a right lateral and right foraminal disc protrusion at L3-4, which is slightly more prominent than on the prior study. Electronically Signed by Constantino Tello MD 07/16/2018 08:49 A
== END ==
LOC: M RAD 14:16
PROVIDERS: ATTEND Physical Medicine & Rehabilitation
DX: M51.26 Other intervertebral disc displacement, lumbar region (principal); M12.88 Other specific arthropathies, not elsewhere classified, other specified site; M51.36 Other intervertebral disc degeneration, lumbar region

== ENCOUNTER → 2018-12-24 | Outpatient (REF) | payer OTHER ==
[~2018-12-24] MED LIST changes: -DULO30CA PO; +DULO30CA9 PO; +TRAZ1TAB10 PO; -TRAZO50TA PO
[2018-12-24 17:48] LABS: INR 0.97; PARTIAL THROMBOPLASTIN TIME 27.8 SECONDS (25.4-37.6)
== END ==
LOC: M LABDRAW1 14:42
PROVIDERS: ATTEND Physician Assistant
DX: Z01.812 Encounter for preprocedural laboratory examination (principal)

== ENCOUNTER → 2019-09-13 | Outpatient (REF) | payer OTHER ==
[~2019-09-13] MED LIST changes: +CYAN500T8 PO; -MONT10TA2 PO; +MONT10TA4 PO; -VITA500T3 PO
[2019-09-13 17:58] LABS: PLATELET COUNT, AUTOMATED 223 10^3/uL (150-450)
[2019-09-13 18:10] LABS: INR 1.03; PROTHROMBIN TIME 13.2 SECONDS (11.8-14.0)
[2019-09-13 18:11] LABS: PARTIAL THROMBOPLASTIN TIME 27.1 SECONDS (25.0-38.4)
== END ==
LOC: M LABDRAW1 17:16
PROVIDERS: ATTEND Physician Assistant
DX: Z01.812 Encounter for preprocedural laboratory examination (principal)

== ENCOUNTER 2019-10-28 12:13 | Inpatient (IN) | payer MEDICARE, MEDICAID ==
[~2019-10-28] VITALS: Ht 165.1 cm; Wt 96.2 kg
[2019-10-28 14:00] VITALS: BP 141/79
[2019-10-28 14:25] LABS: HEMATOCRIT 36.9 % (36.0-47.0); HEMOGLOBIN 12.2 g/dl (12.0-15.5); MEAN CORPUSCULAR HEMOGLOBIN 29.3 pg (27.0-33.0); MEAN CORPUSCULAR HGB CONC 33.1 g/dl (32.0-36.5); MEAN CORPUSCULAR VOLUME 88.7 fl (80.0-96.0); PLATELET COUNT, AUTOMATED 338 10^3/uL (150-450); RED BLOOD COUNT 4.16 10^6/uL (4.00-5.40); WHITE BLOOD COUNT 14.3 10^3/uL (4.0-10.0)
--- NOTE | 2019-10-28 14:28 | HPEPDOC ---
General Date of Admission Oct 28, 2019 at 13:24 Date of Service: Oct 28, 2019 Chief Complaint The patient is a 44-year-old female who presented to [facility] as a direct admission for right breast abscess History of Present Illness Patient is a 44-year-old female with a PMHx of Lupus (off medications x 3 months), RA, Sjogrens, Fibromyalgia, Bipolar I Disorder, Anxiety / De pression, Chronic back pain 2/2 herniated disks presented to [facility] as a direct admission for right breast abscess. Patient has reported that she had a piercing completed early September of her bilateral nipples. And on October 07 began to notice that she was experiencing redness around her right areola. Patient denied any drainage, but did report some pain. Patient follow-up with her primary care provider had provided her with dicloxacillin 500 mg QID x 8 days. Patient continued antibiotics and completed the course, however, she had failed to improve and had called the emergency room for further instructions. Patient was given another course of the same antibiotics. . She also began to self- medicate with prednisone 5 mg. Patient ultimately followed up by calling into her primary provider who had change antibiotics on 10/24 to clindamycin. She is instructed to follow-up with breast surgery, Dr. Jackson on 10/27. Upon follow-up with breast surgery today, she had an ultrasound completed in the office that had revealed a fluid collection which was suggestive of possible abscess. Patient was sent in to [facility] as a direct admission for likely incision and drainage in the OR. Currently patient denies any chills, but did report having a fever on Friday of the 100.6 F. Patient denies any significant headache, nausea, vomiting, chest pain, shortness breath, palpitations, abdominal pain, constipation, diarrhea or urinary discomfort. They report that her appetite is poor, but the denied any recent changes in weight Home Medications Scheduled Clindamycin Hcl (Cleocin HCl) 300 Mg Capsule, 300 MG PO QID, (Reported) FOR 7 DAYS, FILLED 10/25 Cyclosporine (Restasis) 0.05% Droperette, 1 DROP OU DAILY, (Reported) Duloxetine Hcl (Duloxetine HCl) 60 Mg Capsule., 60 MG PO DAILY, (Reported) Famotidine (Famotidine) 20 Mg Tablet, 20 MG PO QHS, (Reported) Gabapentin (Gabapentin) 600 Mg Tablet, 600 MG PO BID, (Reported) Olanzapine (Olanzapine) 2.5 Mg Tablet, 2.5 MG PO QHS, (Reported) Omeprazole (Omeprazole) 40 Mg Capsule.dr, 40 MG PO DAILY, (Reported) [[employer]] , 2 CHEW PO DAILY, (Reported) Scheduled PRN Acetaminophen (Acetaminophen) 500 Mg Tablet, 1,000 MG PO Q6H PRN for PAIN, (Reported) Ibuprofen (Ibu-200) 200 Mg Tablet, 400 MG PO Q8H PRN for PAIN, (Reported) Prednisone (Prednisone) 5 Mg Tablet, 5 MG PO DAILY PRN for LUPUS FLARES, (Reported) Allergies Coded Allergies: iodipamide meglumine (Verified Allergy, Severe, DIFFICULTY BREATHING, 10/28/19) cyclobenzaprine (Verified Allergy, Intermediate, ITCH/HIVES, 10/28/19) TAPE (Verified Allergy, Mild, RASH, 10/28/19) hydroxychloroquine (Verified Adverse Reaction, Intermediate, RETINA DETERIORATION, 10/28/19) sulindac (Verified Adverse Reaction, Mild, N/V, ITCH, 10/28/19) tramadol (Verified Adverse Reaction, Mild, DIZZINESS, VISION PROBLEMS, 10/28/19) Past Medical History Medical History Lupus (off medications x 3 months), RA, Sjogrens, Fibromyalgia, Bipolar I Disorder, Anxiety / Depression, Chronic back pain 2/2 herniated disks Surgical History x2 Cholecystectomy Tonsillectomy Dermoid cyst removal of left ovary Cosmetic jaw surgery Family History - Mother with a history of depression - Father with a history of diabetes, elevated cholesterol, hypothyroidism, and suspected heart issues Social History - Denies the use of tobacco; patient reports that she uses alcohol socially. Does report she recently used marijuana - Denies recent travel or sick contacts - Lives with and daughter and 2 grandchildren - Occupation patient was a [employer] and is now on disability Review of Systems Other systems 10 point review of systems complete, all negative otherwise stated in HPI Vital Signs - Vitals: BP [141/79], HR [74], RR [17], Sat [98%RA], Temp [98.4F] - General: Lying in bed, No acute distress, Speaking in full sentences, AAOx3 - HEENT: NC, AT, PERRLA, EOMI - CVS: RRR, +S1S2 - Lungs: Fair air entry bilaterally, No appreciable wheezing / rales / rhonchi - Abdomen: Soft, Non-distended, Non-tender - Extremities: No lower extremity edema, No calf tenderness - Neuro: No focal motor or sensory deficit - Skin: Right breast with area right of right areola with firm induration approximately 10 x 15 cm, depth unclear, erythema, tenderness and warmth. No drainage is appreciated Laboratory Data Labs 24H Laboratory Tests 2 10/28/19 14:12: Nucleated Red Blood Cells % (auto) 0.0 CBC/BMP Laboratory Tests 10/28/19 14:12 Microbiology Microbiology 10/28/19 Blood Culture, Received Pending Plan / VTE VTE Prophylaxis Ordered?: Yes Plan Plan Breast abscess / Cellulitis - Patient presented to [facility] as a direct admission for cellulitis / abscess - Patient had failed antibiotics as an outpatient with dicloxacillin and clindamycin - Patient had reported fevers of 100.6 on Friday - Physical does reveal a large area of firm induration suggestive of abscess - Patient had an ultrasound completed as an outpatient today (10/27) , with evidence of fluid collection - Will check CBC, CMP, Mg, Type and Screen, beta-HCG - Will check Blood cultures / MRSA screen / UA with reflex - Will start patient on normal saline hydration and Ceftaroline (re: SSTI / MRSA coverage) - Fluid collection will be sent for Gram stain and culture - Case is been discussed with Dr. Jackson who will be taking the patient for today for incision and drainage; will continue to follow on consultation Lupus - Patient has reported that she has been off medications x 3 months - She used to take mycophenolate RA / Sjogrens Fibromyalgia / Bipolar I Disorder / Anxiety / Depression Chronic back pain 2/2 herniated disks - c/w Tylenol PRN Vitamin D deficiency - Will continue supplementation DVT prophylaxis - Will start Heparin SQ post-operatively DREW DO MD Oct 28, 2019 14:28
[2019-10-28] MEDS: HEPARIN SOD (PORCINE) 5000 UNITS/ML VIAL (J1644 PER 1000UNITS) SQ SCH ×2 (14:30→23:16)
[2019-10-28 14:35] LABS: PROTHROMBIN TIME 12.9 SECONDS (11.8-14.0)
[2019-10-28 14:47] LABS: HCG, SERUM QUALITATIVE NEGATIVE (NEGATIVE)
[2019-10-28 14:51] LABS: ALBUMIN 3.3 GM/DL (3.2-5.2); ALT/SGPT 28 U/L (12-78); BILIRUBIN,TOTAL 0.2 MG/DL (0.2-1.0); BLOOD UREA NITROGEN 16 MG/DL (7-18); CARBON DIOXIDE LEVEL 30 MEQ/L (21-32); CHLORIDE LEVEL 103 MEQ/L (98-107); CREATININE FOR GFR 0.71 MG/DL (0.55-1.30); GLOMERULAR FILTRATION RATE > 60.0 (>58); GLUCOSE, FASTING 100 MG/DL (70-100); POTASSIUM SERUM 3.7 MEQ/L (3.5-5.1); SODIUM LEVEL 138 MEQ/L (136-145); TOTAL PROTEIN 6.9 GM/DL (6.4-8.2)
[2019-10-28] MEDS ORDERED: DULO1CAP6 PO (15:23)
[2019-10-28] MEDS ORDERED: GABA600T4 PO (15:23)
[2019-10-28] MEDS ORDERED: FAMO20TA PO (15:23)
[2019-10-28] MEDS ORDERED: CLEO300C2 PO (15:23)
[2019-10-28] MEDS ORDERED: [UNRECOGNIZED DRUG - OTHER] PO (15:23)
[2019-10-28] MEDS ORDERED: ACET-683 PO (15:23)
[2019-10-28] MEDS ORDERED: PRED5TA PO (15:23)
[2019-10-28] MEDS ORDERED: OMEP-221 PO (15:23)
[2019-10-28] MEDS ORDERED: OLAN2.5T25 PO (15:23)
[2019-10-28] MEDS ORDERED: REST0.05 OU (15:23)
[2019-10-28] MEDS ORDERED: IBUP200T45 PO (15:23)
[2019-10-28] MEDS: NS 1,000 ML IV SCH (16:48)
[2019-10-28] MEDS: CEFTAROLINE FOSAMIL 600 MG in D5W MINI-BAG PLUS 50 ML IV SCH (16:48)
[2019-10-28] MEDS: ACETAMINOPHEN TAB 650MG DOSE (2X325MG) PO PRN (16:52)
--- NOTE | 2019-10-28 18:15 | CR.PDOC ---
Plastic Surgery Consultation Date of Consultation 10/28/19 History and Physical REASON FOR CONSULTATION: Right breast abscess HISTORY OF PRESENT ILLNESS: Ms. Epperson is a 44 year-old woman, who works as SUPERVISOR BACKFILLING, with past medical history of MRSA in Toe, lupus, rheumatoid arthritis, fibromyalgia, Sjogren syndrome, hypothyroidism, GERD, who was previously on CellCept, now held for 2 months, presenting to the clinic with the complaint of worsening right breast abscess. She was referred by Suad SCALES from [facility] * Patient states that around middle of September she had bilateral nipple piercing and bilateral ear piercing. Immediately after the piercing she felt a burning sensation. Couple days later she noticed redness in the areas of piercing. She to cough the piercing. A few days later she noted a right axillary lesion which looked like a pimple and she popped it. Some purulent material was drained. She started feeling some malaise shortly after and her right breast developed a pinkish hue. She opted her primary care provider and was started on dicloxacillin for about 10 days. She feels that she was initially doing better about last Friday she become febrile to 100.6 fever orally and she went to em ergency room for evaluation. She was told to sit in the car and no examination was performed. She was instructed to double her antibiotic dose and call her primary care doctor on Friday. She was seen by her primary care provider on Friday and her antibiotics was switched to clindamycin. She has been for 2 days on this medication right now however there is no improvement. * Patient had limited right breast ultrasound to evaluate for abscess on 10/20/2019 [facility]. The images are available in [facility] PACS system. Images demonstrate multiple hypoechoic collection of indeterminate with layers of fascia on the inner aspect of breast parenchyma 3:00, there is no evidence of association it hyperemia. However in the juxta Christiane region in the 9 o'clock position a small collection approximately 7 x 6 mm associated with component of. This suggests at present abscess presents. This corresponds with palpable lump. Impression: Findings are consistent with fluid collection that are not loculated. Clinical correlation advised for possibility of infection. BI-RADS 2 category was assigned to this study. * They patient presented to the clinic with area of erythema involving one fourth of her right breast in the lower outer quadrant. Her vitals are stable at this time. Her last meal was at 7:30am this morning and she states that she ate cereal. * Patient admits that she was taking some prednisone along with her antibiotics which she had left over from her rheumatology treatment of her rheumatoid arthritis. She was not advised by medical profession to do that in this situation. * Of note she has family history of breast cancer in her maternal grandma PAST MEDICAL HISTORY: 1. Gastroesophageal reflux, hypothyroidism, rheumatoid arthritis, Sjogren's sy ndrome, lupus, history of MRSA, anxiety and bipolar depression, fibromyalgia, vitamin D deficiency PAST SURGICAL HISTORY: INCLUDES: , left ovary removal, gallbladder removal, colonoscopy, tonsils ALLERGIES: Please see below. FAMILY HISTORY: Maternal grandmother with breast cancer HOME MEDICATIONS: Please see below. REVIEW OF SYSTEMS: GENERAL: Fevers last Friday 100.6 HEENT: had previous right ear piercing with some redness after the piercing NECK: Denies any neck pain CARDIOVASCULAR: No chest pain MUSCULOSKELETAL: Chest pain in the right breast SKIN: Worsening redness and swelling of the right breast NEUROLOGIC: She has headaches PSYCHIATRIC: Patient has bipolar depression and anxiety ENDOCRINE: No diabetes but admits to hypothyroidism HEMATOLOGY/ONCOLOGY: Not on aspirin INFECTIOUS: Patient has active infection of the right breast with underlying abscess has been going on for 20 days and is getting worse PHYSICAL EXAMINATION: VITALS SIGNS: Please see below. GENERAL APPEARANCE: Patient is seen in the clinic earlier today uncomfortable due to pain but not in acute distress. BREAST: There is extensive erythema of the right breast measuring 10 x 12 cm. This is tender to palpation and is hot to touch. There is right axillary palpable lymphadenopathy which is likely reactive. In unofficial ultrasound of the right breast shows fluid collection at 2 cm depth . There are no masses or lesions in the left breast. There is no axillary lymphadenopathy on the left. There is no bilateral nipple discharge or nipple scaling. There is no piercing currently in place. HEENT: Mucosa moist NECK: Supple. LUNGS: Clear to auscultation bilaterally. HEART: Not tachycardic. ABDOMEN: Abdomen is nondistended EXTREMITIES: She is ambulating that assistance. There is no gross deformity of extremities. LABORATORY DATA: Please see below. IMAGING STUDIES: unofficial in office US of the Right breast shows moderate size fluid collection at 2 cm depth IMPRESSION: 44 -year-old female with right breast abscess worsening in the course of past 20 days despite 2 courses of antibiotics. PLANS: - admit to hospital for treatment of enlarging Right breast abscess with failure of outpatient treatment to medicine service - OR tonight of I&D - IV abx - Keep NPO with IVF - Blood/ would cultures - CBC/BMP/ T&S/ Urine - OR charge out clerk/ liquid yeast supervisor and Hospitalist service aware - DVT PPX with SCD and sq Hep 5000u q8 h Vital Signs Vital Signs Date Time Temp Pulse Resp B/P (MAP) Pulse Ox O2 Delivery O2 Flow Rate FiO2 10/28/19 14:00 98.4 74 17 141/79 (99) 98 Laboratory Data Labs 24H Laboratory Tests 2 10/28/19 14:12: Nucleated Red Blood Cells % (auto) 0.0, Prothrombin Time 12.9, Prothromb Time International Ratio 1.00, Anion Gap 5L, Glomerular Filtration Rate > 60.0, Lactic Acid Level 1.0, Calcium Level 9.0, Total Bilirubin 0.2, Aspartate Amino Transf (AST/SGOT) 13, Alanine Aminotransferase (ALT/SGPT) 28, Alkaline Phosphatase 101, Total Protein 6.9, Albumin 3.3, Albumin/Globulin Ratio 0.92L, Human Chorionic Gonadotropin, Qual NEGATIVE CBC/BMP Laboratory Tests 10/28/19 14:12 Microbiology Microbiology 10/28/19 Blood Culture, Received Pending 10/28/19 Blood Culture, Received Pending Home Medications Scheduled Clindamycin Hcl (Cleocin HCl) 300 Mg Capsule, 300 MG PO QID, (Reported) FOR 7 DAYS, FILLED 10/25 Cyclosporine (Restasis) 0.05% Droperette, 1 DROP OU DAILY, (Reported) Duloxetine Hcl (Duloxetine HCl) 60 Mg Capsule.dr, 60 MG PO DAILY, (Reported) Famotidine (Famotidine) 20 Mg Tablet, 20 MG PO QHS, (Reported) Gabapentin (Gabapentin) 600 Mg Tablet, 600 MG PO BID, (Reported) Olanzapine (Olanzapine) 2.5 Mg Tablet, 2.5 MG PO QHS, (Reported) Omeprazole (Omeprazole) 40 Mg Capsule.dr, 40 MG PO DAILY, (Reported) [[employer]] , 2 CHEW PO DAILY, (Reported) Scheduled PRN Acetaminophen (Acetaminophen) 500 Mg Tablet, 1,000 MG PO Q6H PRN for PAIN, (Reported) Ibuprofen (Ibu-200) 200 Mg Tablet, 400 MG PO Q8H PRN for PAIN, (Reported) Prednisone (Prednisone) 5 Mg Tablet, 5 MG PO DAILY PRN for LUPUS FLARES, (Reported) Allergies Coded Allergies: iodipamide meglumine (Verified Allergy, Severe, DIFFICULTY BREATHING, 10/28/19) cyclobenzaprine (Verified Allergy, Intermediate, ITCH/HIVES, 10/28/19) TAPE (Verified Allergy, Mild, RASH, 10/28/19) hydroxychloroquine (Verified Adverse Reaction, Intermediate, RETINA DETERIORATION, 10/28/19) sulindac (Verified Adverse Reaction, Mild, N/V, ITCH, 10/28/19) tramadol (Verified Adverse Reaction, Mild, DIZZINESS, VISION PROBLEMS, 10/28/19) JENY RAI DO Oct 28, 2019 18:15
--- NOTE | 2019-10-28 19:09 | ECGEPIP ---
[facility] Test Date: 2019-10-28 Pat Name: MESERET ISBELL Department: Room: [place] [id number] Gender: Female E Commerce Architect: : 1975 Requested By: DREW DO Order Number: [id number] Reading MD: Cristobal Johnson Measurements Intervals [place] Rate: 64 P: 43 W[place]: 149 QRS: 33 QRSD: 90 T: 11 QT: 419 QTc: 432 Interpretive Statements SINUS RHYTHM normal Electronically Signed on 10-28-2019 19:09:22 EDT by Cristobal Johnson
[2019-10-28] MEDS ORDERED: SCOPOLAMINE 1MG TRANSDERMAL PATCH As Ordered ONE (19:35)
[2019-10-28] MEDS: SCOPOLAMINE 1MG TRANSDERMAL PATCH TOP ONE ×2 (20:15→23:15)
[2019-10-28] MEDS ORDERED: LIDOCAINE 1% SDV INJ 30 ML VIAL As Ordered ONE (20:47)
[2019-10-28] MEDS ORDERED: BUPIVACAINE HCL 0.25% 30ML VIAL As Ordered ONE (20:47)
[2019-10-28] MEDS ORDERED: fentaNYL 100 MCG/2 ML INJECTION (J3010) As Ordered ONE ×2 (20:54→21:11)
[2019-10-28] MEDS ORDERED: MIDAZOLAM INJ 2 MG/2 ML VIAL (J2250) As Ordered ONE (20:54)
[2019-10-28] MEDS ORDERED: propofoL 200 MG/20 ML VIAL As Ordered ONE (20:54)
[2019-10-28] MEDS ORDERED: SUGAMMADEX SODIUM 500 MG/5 ML VIAL (BRIDION) As Ordered ONE (20:55)
[2019-10-28] MEDS ORDERED: LIDOCAINE 2% INJ 100 MG/5 ML SDV (FOR ANES.) As Ordered ONE (20:55)
[2019-10-28] MEDS ORDERED: ONDANSETRON 4MG/2ML VIAL (J2405) As Ordered ONE (20:55)
[2019-10-28] MEDS ORDERED: ROCURONIUM BROMIDE 50 MG/5 ML VIAL As Ordered ONE (20:55)
[2019-10-28] MEDS ORDERED: dexameTHASONE 4 MG/ML 1ML VIAL (J1100 PER 1MG) As Ordered ONE (20:55)
[2019-10-28] MEDS ORDERED: ACETAMINOPHEN 1000MG 100ML IV BTL (OFIRMEV) (J0131 PER 10MG) As Ordered ONE (21:05)
[2019-10-28] MEDS ORDERED: fentaNYL 100 MCG/2 ML INJECTION (J3010) IV PRN (22:00)
[2019-10-28] MEDS ORDERED: ONDANSETRON 4MG/2ML VIAL (J2405) IV PRN (22:00)
[2019-10-28] MEDS ORDERED: LR 1,000 ML IV SCH (22:00)
[2019-10-28] MEDS ORDERED: oxyCODONE 5MG TAB PO PRN ×3 (22:00→22:30)
--- NOTE | 2019-10-28 22:05 | POST-OPPD ---
Postoperative Procedure Note Date Of Procedure: Oct 28, 2019 PREOPERATIVE DIAGNOSIS: large right breast abscess POSTOPERATIVE DIAGNOSIS: large right breast abscess FINDINGS: Large amount of thick purulent drainage present in extensive right breast abscess measuring 12 x 10 cm PROCEDURE: incision and drainage of large right breast abscess SURGEON: Jeny Rai DAIRY FARM OPERATOR: ANESTHESIA: general SPECIMENS: wound cultures ESTIMATED BLOOD LOSS: 20 cc DRAINS: sanjay drain COMPLICATIONS: none POSTOPERATIVE CONDITION: good JENY RAI DO Oct 28, 2019 22:05
[2019-10-28] MEDS ORDERED: oxyCODONE 5MG TAB As Ordered ONE (22:08)
--- NOTE | 2019-10-28 22:41 | ROOPDOC ---
[facility] Report Of Operation Report of Operation DATE OF PROCEDURE: 10/28/19 PREPROCEDURE DIAGNOSES: Large right breast abscess POSTPROCEDURE DIAGNOSES: Large right breast abscess PROCEDURE: Incision and drainage of right breast abscess SURGEON: Jeny Rai CURRICULUM SUPERVISOR: ANESTHESIA: General anesthesia was used ESTIMATED BLOOD LOSS: Approximately 20 mL. COMPLICATIONS: None REMARKS: There was a large amount of thick purulent drainage present at the extensive right breast abscess area measuring 10 x 12 cm DESCRIPTION OF PROCEDURE: INDICATIONS: Ms. Carrasco is a 44 year-old woman who was found to have large right breast abscess. Patient did cooper her nipples 20 days ago and developed redness in the area. She was treated with 2 courses of antibiotics and progressed. She recently started to develop fevers. Her right breast developed extensive redness and induration measuring 12 x 10 cm. Ultrasound of the area was done on October 19 and showed underlying fluid collection. In office ultrasound today showed extensive fluid collection in the right breast. Due to the extent of abscess I recommended surgical intervention with incision and drainage of the abscess in the operating room as opposed to attempting to drain it in the office. Patient agreed with the plan. She was admitted to the hospital for IV antibiotics and surgical incision and drainage of the abscess in the operating room later on that night. Risks and possible complications of surgical procedure including bleeding, infection and injury to surrounding structures were explained to the patient and she wished to proceed. Consent was signed. My initials were placed on the operative site. DETAILS: Patient was taken to the operating room and placed on the operating room table. A sign in was called stating patients name, date of and the procedure to be done. Preoperative antibiotics were infused. Smooth induction of general anesthesia was done. Patients hands were extended on arm rests. Care was taken not to over extend the arms. Next, patients right breast was prepped and draped in the usual fashion. Ultrasound probe was used to found area of most of the fluid collection which is closest to the skin in the lateral aspect of the right breast. An incision was made with scalpel #15 couple centimeters anterior to anterior axillary line. Dissection was carried with electrocautery toward the fluid collection using ultrasound guidance. When the abscess cavity was entered large amount of yellow, thick, purulent drainage came out. Cultures of the fluids were collected and sent to the laboratory. Abscess loculations were broken in the area of induration measuring 12x10 cm. The cavity was thoroughly irrigated. A Kelly drain was advanced into the cavity and sutured at the incision site with 2-0 nylon suture. Next, local anesthetic using 1% lidocaine and 0.25 % Marcaine 50/50 mix was injected at the site of incision. The local anesthetic was also injected under the nipple providing nipple block. Adequate hemostasis was assured. Incision was left open to provide drainage. The incision was covered with ABD pads and surgical bra was placed. Sponge and instrument counts were done and were correct. Patient emerged from the anesthesia without any problems. Patient tolerated procedure well and was taken to recovery unit in stable condition. JENY RAI DO Oct 28, 2019 22:08
[2019-10-28 22:50] VITALS: BP 125/77
[2019-10-28 23:20] VITALS: BP 121/74
[2019-10-28 23:50] VITALS: BP 133/73
[2019-10-29] VITALS (7 sets, daily range): BP systolic 106–122; BP diastolic 47–72
[2019-10-29] MEDS: CEFTAROLINE FOSAMIL 600 MG in D5W MINI-BAG PLUS 50 ML IV SCH ×2 (01:31→13:15)
[2019-10-29] MEDS: HEPARIN SOD (PORCINE) 5000 UNITS/ML VIAL (J1644 PER 1000UNITS) SQ SCH ×3 (04:56→21:22)
[2019-10-29] MEDS: ACETAMINOPHEN TAB 650MG DOSE (2X325MG) PO PRN ×3 (05:01→21:26)
[2019-10-29 06:12] LABS: BASO % 0.2 % (0.0-1.0); HEMATOCRIT 34.9 % (36.0-47.0); HEMOGLOBIN 11.6 g/dl (12.0-15.5); LYMPH # 1.3 10^3/uL (1.5-5.0); LYMPH % 9.6 % (24.0-44.0); MEAN CORPUSCULAR HEMOGLOBIN 29.2 pg (27.0-33.0); MEAN CORPUSCULAR HGB CONC 33.2 g/dl (32.0-36.5); MEAN CORPUSCULAR VOLUME 87.9 fl (80.0-96.0); MONO # 0.4 10^3/uL (0.0-0.8); MONO % 3.2 % (0.0-5.0); NEUTROPHILS # 11.5 10^3/uL (1.5-8.5); NEUTROPHILS % 86.6 % (36.0-66.0); PLATELET COUNT, AUTOMATED 351 10^3/uL (150-450); RED BLOOD COUNT 3.97 10^6/uL (4.00-5.40); WHITE BLOOD COUNT 13.3 10^3/uL (4.0-10.0)
[2019-10-29 06:41] LABS: BLOOD UREA NITROGEN 12 MG/DL (7-18); CALCIUM LEVEL 8.6 MG/DL (8.5-10.1); CARBON DIOXIDE LEVEL 29 MEQ/L (21-32); CHLORIDE LEVEL 103 MEQ/L (98-107); CREATININE FOR GFR 0.83 MG/DL (0.55-1.30); GLOMERULAR FILTRATION RATE > 60.0 (>58); GLUCOSE, FASTING 146 MG/DL (70-100); MAGNESIUM LEVEL 2.2 MG/DL (1.8-2.4); POTASSIUM SERUM 4.4 MEQ/L (3.5-5.1); SODIUM LEVEL 139 MEQ/L (136-145)
[2019-10-29] MEDS: NS 1,000 ML IV SCH ×2 (07:10→13:20)
--- NOTE | 2019-10-29 12:16 | IPNPDOC ---
Text Note Date of Service The patient was seen on 10/29/19. NOTE Subjective: Patient is a 44-year-old female with a PMHx of Lupus (off medications x 3 months), RA, Sjgren disease, Fibromyalgia, Bipolar I Disorder, Anxiety / Depression, Chronic back pain 2/2 herniated disks presented to [facility] as a direct admission for right breast abscess. Patient has reported that she had a piercing completed early September of her bilateral nipples. And on October 07 began to notice that she was experiencing redness around her right areola. Patient denied any drainage, but did report some pain. Patient follow-up with her primary care provider had provided her with dicloxacillin 500 mg QID x 8 days. Patient continued antibiotics and completed the course, however, she had failed to improve and had called the emergency room for further instructions. Patient was given another course of the same antibiotics. . She also began to self-medicate with prednisone 5 mg. Patient ultimately followed up by calling into her primary provider who had change antibiotics on 10/24 to clindamycin. She is instructed to follow-up with breast surgery, Dr. Jackson on 10/27. Upon follow-up with breast surgery, she had an ultrasound completed in the office that had revealed a fluid collection which was suggestive of possible abscess. Patient was sent in to [facility] as a direct admission for likely incision and drainage in the OR. Patient was seen and examined at the bedside. Reports improvement of her right side of her breast. She denies any nausea, vomiting, chest pain, shortness breath, palpitations. Denies any urinary discomfort or diarrhea. Objective: Vitals (See below) General: Lying in bed, appears comfortable, AAOx3 HEENT: NC, AT CVS: +S1S2 Lungs: Fair air entry b/l, -w/r/r Abdomen: Soft, ND, NT Extremities: - Edema, - Calf tenderness Skin: Right sided breast with improvement of fluid collection incision noted, mild drainage noted, still area of induration, erythema and warmth, however, slightly improved Assessment and plan: Breast abscess / Cellulitis - Patient presented to [facility] as a direct admission for cell ulitis / abscess - Patient had failed antibiotics as an outpatient with dicloxacillin and clindamycin - Physical reveals improved area of induration, however, still persistent erythema, warmth and tenderness - Cultures remain pending / MRSA screen negative - will adjust antibiotics based on sensitivities - Patient had an ultrasound completed as an outpatient today (10/27) , with evidence of fluid collection - s/p I&D with Dr. Jackson on 10/27 - c/w Ceftaroline (re: SSTI) - Dr. Jackson on consultation; appreciate their input Lupus - Patient has reported that she has been off medications x 3 months - She used to take mycophenolate RA / Sjogrens / Fibromyalgia / Bipolar I Disorder / Anxiety / Depression - Resume home medications Chronic back pain 2/2 herniated disks - c/w Tylenol PRN Vitamin D deficiency - Will continue supplementation GERD - c/w Omeprazole DVT prophylaxis - Will start Heparin SQ post-operatively VS,Fishbone, I+O VS, Fishbone, I+O Laboratory Tests 10/28/19 14:12 10/29/19 05:39 Vital Signs Date Time Temp Pulse Resp B/P (MAP) Pulse Ox O2 Delivery O2 Flow Rate FiO2 10/29/19 06:00 97.3 52 13 116/68 (84) 96 Room Air 10/28/19 22:05 10 I&O- Last 24 Hours up to 6 AM 10/29/19 06:00 Intake Total 3552 ml Output Total 20 ml Balance 3532 ml DREW DO MD Oct 29, 2019 12:16
[2019-10-29] MEDS: OMEPRAZOLE 20 MG CAP PO SCH (13:15)
[2019-10-29] MEDS: DULoxetine 30 MG CAP (CYMBALTA) PO SCH (13:15)
[2019-10-29] MEDS: GABAPENTIN 300 MG CAP PO SCH ×2 (13:15→21:26)
[2019-10-29] MEDS: OLANZapine 2.5MG TABLET PO SCH (21:26)
[2019-10-29] MEDS: FAMOTIDINE 20 MG TAB PO SCH (21:26)
--- NOTE | 2019-10-29 23:07 | IPNPDOC ---
Subjective General Date Seen: Oct 29, 2019 (10 am) Subject Chief Complaint/History The patient is a 44-year-old female admitted with a reason for visit of Right Breast Abscesses,s/p I&D in operation room with sanjay drain placement 10/28/2019. Patient reports feeling better. There is no fever. Her white blood cells are trending down. Pain is improved. There is no vomiting and there is only mild nausea postop. Patient was able to ambulate and is without any issues. Current Medications Current Medications Current Medications Medications (Trade) Dose Ordered Sig/Timothy Route PRN Reason Start Time Stop Time Status Last Admin Dose Admin Acetaminophen (Tylenol Tab) 650 mg Q4H PRN PO PAIN OR FEVER 10/28/19 13:30 10/29/19 05:01 Ceftaroline Fosamil 600 mg/ Dextrose 50 ml @ 50 mls/hr Q12H IV 10/28/19 14:00 10/29/19 01:31 Fentanyl Citrate (Sublimaze) 25 mcg Q5MP PRN IV PAIN LEVEL 5-10 10/28/19 22:00 10/28/19 22:59 DC Heparin Sodium (Porcine) (Heparin) 5,000 units Q8H SQ 10/28/19 14:30 10/29/19 04:56 Home Med (Med Rec Complete!) ASDIRECTED XX 10/28/19 15:30 10/28/19 15:27 DC Lactated Ringer's 1,000 ml @ 100 mls/hr Q10H IV 10/28/19 22:00 10/28/19 22:59 DC Ondansetron HCl (ZOFRAN INJection) 4 mg Q4HP PRN IV NAUSEA OR VOMITING 10/28/19 22:00 10/28/19 22:59 DC Oxycodone HCl (Roxicodone, Oxyir) 5 mg ASDIRECTED PRN PO PAIN LEVEL 1-4 10/28/19 22:00 10/28/19 22:59 DC 10/28/19 22:10 Oxycodone HCl (Roxicodone, Oxyir) 5 mg Q6HP PRN PO PAIN LEVEL 4-7 10/28/19 22:30 Oxycodone HCl (Roxicodone, Oxyir) 10 mg Q4HP PRN PO SEVERE PAIN (PS 8-10) 10/28/19 22:30 Sodium Chloride 1,000 ml @ 60 mls/hr [id number] IV 10/28/19 14:30 10/28/19 16:48 Allergies Coded Allergies: iodipamide meglumine (Verified Allergy, Severe, DIFFICULTY BREATHING, 10/28/19) cyclobenzaprine (Verified Allergy, Intermediate, ITCH/HIVES, 10/28/19) TAPE (Verified Allergy, Mild, RASH, 10/28/19) hydroxychloroquine (Verified Adverse Reaction, Intermediate, RETINA DETERIORATION, 10/28/19) sulindac (Verified Adverse Reaction, Mild, N/V, ITCH, 10/28/19) tramadol (Verified Adverse Reaction, Mild, DIZZINESS, VISION PROBLEMS, 10/28/19) Objective Physical Examination Examination GENERAL APPEARANCE: Alert and oriented, not in acute distress. BREAST: Right breast is still with some induration but there are tumor is improving. Breast is also softer. There is serosanguineous drainage from the wound Sanjay drain is in place. HEENT: Mucosa moist LUNGS: Breathing comfortably on room air HEART: No tachycardia ABDOMEN: Abdomen is nondistended EXTREMITIES: There is no edema in extremities. Vital Signs Vital Signs Date Time Temp Pulse Resp B/P (MAP) Pulse Ox O2 Delivery O2 Flow Rate FiO2 10/29/19 06:00 97.3 52 13 116/68 (84) 96 Room Air 10/28/19 22:05 10 I&Os I&O- Last 24 Hours up to 6 AM 10/29/19 06:00 Intake Total 3552 ml Output Total 20 ml Balance 3532 ml Laboratory Data Labs 24H Laboratory Tests 2 10/28/19 14:12: Nucleated Red Blood Cells % (auto) 0.0, Prothrombin Time 12.9, Prothromb Time International Ratio 1.00, Anion Gap 5L, Glomerular Filtration Rate > 60.0, Lactic Acid Level 1.0, Calcium Level 9.0, Total Bilirubin 0.2, Aspartate Amino Transf (AST/SGOT) 13, Alanine Aminotransferase (ALT/SGPT) 28, Alkaline Phosphatase 101, Total Protein 6.9, Albumin 3.3, Albumin/Globulin Ratio 0.92L, Human Chorionic Gonadotropin, Qual NEGATIVE 10/28/19 17:51: Methicillin-Resist S.aureus DNA PCR NOT DETECTED 10/28/19 17:52: Urine Color YELLOW, Urine Appearance CLEAR, Urine pH 6.0, Urine Specific [place] 1.019, Urine Protein NEGATIVE, Urine Glucose (UA) NEGATIVE, Urine Ketones NEGATIVE, Urine Blood NEGATIVE, Urine Nitrite NEGATIVE, Urine Bilirubin NEGATIVE, Urine Urobilinogen 0.2, Urine Leukocyte Esterase NEGATIVE, Urine WBC (Auto) 0, Urine RBC (Auto) 1, Urine Hyaline Casts (Auto) 0, Urine Bacteria (Auto) 1+H, Urine Squamous Epithelial Cells 0, Urine Mucus (Auto) SMALL, Urine Sperm (Auto) 10/29/19 05:39: Nucleated Red Blood Cells % (auto) 0.0, Anion Gap 7L, Glomerular Filtration Rate > 60.0, Calcium Level 8.6, Immature Granulocyte % (Auto) 0.4, Neutrophils (%) (Auto) 86.6H, Lymphocytes (%) (Auto) 9.6L, Monocytes (%) (Auto) 3.2, Eosinophils (%) (Auto) 0.0, Basophils (%) (Auto) 0.2, Neutrophils # (Auto) 11.5H, Lymphocytes # (Auto) 1.3L, Monocytes # (Auto) 0.4, Eosinophils # (Auto) 0.0, Basophils # (Auto) 0.0, Magnesium Level 2.2 CBC/BMP Laboratory Tests 10/28/19 14:12 10/29/19 05:39 Microbiology Microbiology 10/28/19 Gram Stain, Received Pending 10/28/19 Abscess Culture, Received Pending 10/28/19 Anaerobic Culture, Received Pending 10/28/19 Blood Culture, Received Pending 10/28/19 Blood Culture, Received Pending Impression 44 year-old woman with large right breast abscess, status post incision and drainage in the operating room done on 10/28/2019 -Continue IV antibiotics -Regular diet -Stop IV fluids -Pain control -Monitor leukocytosis, trending down now -Awaiting cultures and Gram stain from wound and blood cultures -monitor drainage from the right breast, change fattiness needed -Encourage ambulation and incentive spirometer -Greatly appreciate medicine team help in management of this patient -DVT prophylaxis with subcutaneous heparin and SCDs Plan / VTE VTE Prophylaxis Ordered?: Yes JENY RAI DO Oct 29, 2019 08:20
[2019-10-30] MEDS: CEFTAROLINE FOSAMIL 600 MG in D5W MINI-BAG PLUS 50 ML IV SCH ×2 (02:25→14:10)
[2019-10-30] MEDS: ACETAMINOPHEN TAB 650MG DOSE (2X325MG) PO PRN ×3 (02:29→20:18)
[2019-10-30] MEDS: HEPARIN SOD (PORCINE) 5000 UNITS/ML VIAL (J1644 PER 1000UNITS) SQ SCH ×3 (06:00→21:35)
[2019-10-30 06:30] LABS: HEMATOCRIT 33.2 % (36.0-47.0); HEMOGLOBIN 10.9 g/dl (12.0-15.5); RED BLOOD COUNT 3.71 10^6/uL (4.00-5.40); WHITE BLOOD COUNT 8.6 10^3/uL (4.0-10.0)
[2019-10-30 06:31] LABS: BASO % 0.5 % (0.0-1.0); EOS # 0.1 10^3/uL (0.0-0.5); EOS % 0.9 % (0.0-3.0); LYMPH # 2.8 10^3/uL (1.5-5.0); LYMPH % 32.6 % (24.0-44.0); MEAN CORPUSCULAR HEMOGLOBIN 29.4 pg (27.0-33.0); MEAN CORPUSCULAR HGB CONC 32.8 g/dl (32.0-36.5); MEAN CORPUSCULAR VOLUME 89.5 fl (80.0-96.0); MONO # 0.9 10^3/uL (0.0-0.8); MONO % 10.2 % (0.0-5.0); NEUTROPHILS # 4.8 10^3/uL (1.5-8.5); NEUTROPHILS % 55.6 % (36.0-66.0); PLATELET COUNT, AUTOMATED 292 10^3/uL (150-450)
[2019-10-30 06:39] VITALS: BP 106/56
[2019-10-30 07:02] LABS: BLOOD UREA NITROGEN 15 MG/DL (7-18); CALCIUM LEVEL 8.4 MG/DL (8.5-10.1); CARBON DIOXIDE LEVEL 31 MEQ/L (21-32); CHLORIDE LEVEL 106 MEQ/L (98-107); CREATININE FOR GFR 0.72 MG/DL (0.55-1.30); GLOMERULAR FILTRATION RATE > 60.0 (>58); GLUCOSE, FASTING 82 MG/DL (70-100); MAGNESIUM LEVEL 1.9 MG/DL (1.8-2.4); SODIUM LEVEL 141 MEQ/L (136-145)
[2019-10-30] MEDS: GABAPENTIN 300 MG CAP PO SCH ×2 (08:42→20:18)
[2019-10-30] MEDS: DULoxetine 30 MG CAP (CYMBALTA) PO SCH (08:42)
[2019-10-30] MEDS: OMEPRAZOLE 20 MG CAP PO SCH (08:43)
--- NOTE | 2019-10-30 11:27 | IPNPDOC ---
Text Note Date of Service The patient was seen on 10/30/19. NOTE S: Pt examined at bedside. Is feeling better. Afebrile and pain is under control. Erythema and edema of right breast is improving. No reported events overnight. Denies chest pain, shortness of breath, nausea, vomiting, or any abnormal discharges. PE: Vitals: see below General: NAD, A&Ox3, resting comfortably HEENT: NCAT, EOMI, anicteric sclera, MMM CV: RRR, no murmurs or clicks or rub. No edema RESP: CTAB, no w/r/r/ ABD: soft, NT, ND. Benign EXTREMITIES: 2+ radial pulses b/l, able to move all extremities NEURO: no focal deficits or acute changes SKIN: Lateral side of right breast with improving erythema, edema, and pain from prior days, incision site with surgical drain present A/P: 44-year-old female with PMH of lupus off of medications for 3 months, rheumatoid arthritis, Sjogren's disease, fibromyalgia, bipolar 1 disorder, a nxiety/depression, chronic back pain secondary to herniated disks presented for direct admission due to right breast abscess that started after bilateral nipple piercings early September and thereafter became infected and failed outpatient dicloxacillin 2 courses, clindamycin, and self medicated with prednisone. Ultrasound in office of Dr. Jackson breast surgeon noted a fluid collection suggestive of abscess, for which she was admitted and underwent an I&D with Dr. Jackson 10/27. 1. Right breast abscess & cellulitis - failed o/p Dicloxicillin and Clindamycin - Evidence of fluid collection on ultrasound completed as an outpatient 10/27 - Direct admit from breast surgeon Dr. Jackson's office for surgical intervention - s/p I&D with Dr. Jackson on 10/27, post-op Day 2 - pt reports improving pain and drainage - erythema and warmth and induration improving - Per the Lab, cultures are growing Staph aureus, but sensitivities pending - continue Ceftaroline and await sensitivity - Dr. Jackson on consult, appreciate input Lupus - off meds for 3 months reportedly - used to take Mycophenolate rheumatoid arthritis, Sjogren's disease, fibromyalgia, bipolar 1 disorder, anxiety/depression - continue home meds chronic back pain secondary to herniated disks - continue pain control Tylenol prn DVT ppx: heparin sc DISPO: monitor for post-op infection, pain, surgical site healing. Pending culture sensitivities. Likely d/c home tomorrow. VS,Fishbone, I+O VS, Fishbone, I+O Laboratory Tests 10/30/19 06:19 Vital Signs Date Time Temp Pulse Resp B/P (MAP) Pulse Ox O2 Delivery O2 Flow Rate FiO2 10/30/19 06:39 97.5 67 18 106/56 (73) 97 Room Air 10/28/19 22:05 10 I&O- Last 24 Hours up to 6 AM 10/30/19 06:00 Intake Total 2270 ml Balance 2270 ml GME ATTESTATION GME ATTESTATION My faculty preceptor for this patient encounter was physically present during the encounter and was fully available. All aspects of the patient interview, examination, medical decision making process, and medical care plan development were reviewed and approved by the faculty preceptor. The faculty preceptor is aware and concurs with the plan as stated in the body of this note and will atte st to such by his/her cosignature. ATTENDING NOTE I, Jodi Do, have independently examined this patient and performed my own physical exam, as well as reviewed the documentation and edited where necessary. I have discussed in detail with the resident / student the findings and plan of treatment as documented by the resident / student and edited their note. I agree with their findings and treatment plan and have edited their documentation. I will continue to follow the patient during this hospital stay. MARK LIU DO Oct 30, 2019 11:27 JODI DO MD Oct 30, 2019 14:17
--- NOTE | 2019-10-30 13:49 | IPNPDOC ---
Subjective General Date Seen: Oct 30, 2019 (9 am) Subject Chief Complaint/History The patient is a 44-year-old female admitted with a reason for visit of Right Breast Abscesses, status post incision and drainage of the abscess and sanjay drain placement 2 days ago. Patient is afebrile. Leukocytosis resolved. Blood cultures remain negative. Wound culture shows heavy growth of Staphylococcus aureus. It is unclear yet if it is MRSA or not. Microbiology lab expects to have sensitivities tomorrow. Patient overall feels better.Occasionally she is Tylenol. Drainage from the wound remained serosanguineous. Current Medications Current Medications Current Medications Medications (Trade) Dose Ordered Sig/Timothy Route PRN Reason Start Time Stop Time Status Last Admin Dose Admin Acetaminophen (Tylenol Tab) 650 mg Q4H PRN PO PAIN OR FEVER 10/28/19 13:30 10/30/19 06:31 Ceftaroline Fosamil 600 mg/ Dextrose 50 ml @ 50 mls/hr Q12H IV 10/28/19 14:00 10/30/19 02:25 Duloxetine HCl (Cymbalta) 60 mg DAILY PO 10/29/19 09:00 10/30/19 08:42 Famotidine (Pepcid) 20 mg QHS PO 10/29/19 21:00 10/29/19 21:26 Fentanyl Citrate (Sublimaze) 25 mcg Q5MP PRN IV PAIN LEVEL 5-10 10/28/19 22:00 10/28/19 22:59 DC Gabapentin (Neurontin) 600 mg BID PO 10/29/19 09:00 10/30/19 08:42 Heparin Sodium (Porcine) (Heparin) 5,000 units Q8H SQ 10/29/19 14:00 10/29/19 13:15 Heparin Sodium (Porcine) (Heparin) 5,000 units Q8H SQ 10/28/19 14:30 10/29/19 12:21 DC 10/29/19 04:56 Home Med (Med Rec Complete!) ASDIRECTED XX 10/28/19 15:30 10/28/19 15:27 DC Lactated Ringer's 1,000 ml @ 100 mls/hr Q10H IV 10/28/19 22:00 10/28/19 22:59 DC Olanzapine (ZyPREXA) 2.5 mg QHS PO 4/10/20 21:00 10/29/19 21:26 Omeprazole (PriLOSEC) 40 mg DAILY PO 10/29/19 09:00 10/30/19 08:43 Ondansetron HCl (ZOFRAN INJection) 4 mg Q4HP PRN IV NAUSEA OR VOMITING 10/28/19 22:00 10/28/19 22:59 DC Oxycodone HCl (Roxicodone, Oxyir) 5 mg ASDIRECTED PRN PO PAIN LEVEL 1-4 10/28/19 22:00 10/28/19 22:59 DC 10/28/19 22:10 Oxycodone HCl (Roxicodone, Oxyir) 5 mg Q6HP PRN PO PAIN LEVEL 4-7 10/28/19 22:30 Oxycodone HCl (Roxicodone, Oxyir) 10 mg Q4HP PRN PO SEVERE PAIN (PS 8-10) 10/28/19 22:30 Sodium Chloride 1,000 ml @ 60 mls/hr [id number] IV 10/28/19 14:30 10/29/19 23:13 DC 10/29/19 13:20 Allergies Coded Allergies: iodipamide meglumine (Verified Allergy, Severe, DIFFICULTY BREATHING, 10/28/19) cyclobenzaprine (Verified Allergy, Intermediate, ITCH/HIVES, 10/28/19) TAPE (Verified Allergy, Mild, RASH, 10/28/19) hydroxychloroquine (Verified Adverse Reaction, Intermediate, RETINA DETERIORATION, 10/28/19) sulindac (Verified Adverse Reaction, Mild, N/V, ITCH, 10/28/19) tramadol (Verified Adverse Reaction, Mild, DIZZINESS, VISION PROBLEMS, 10/28/19) Objective Physical Examination Examination GENERAL APPEARANCE:Patient seen, laying in bed, awake, alert, and oriented. Comfortable, in no acute distress. BREAST: Right breast induration is still present however erythema is decreasing. There is still some blanching of the skin. [place] drain is in place with some serosanguineous drainage. Overall breast is softer however not back to normal yet. HEENT: Mucosa is moist LUNGS: Breathing comfortably on room air HEART: No tachycardia ABDOMEN: Abdomen is nondistended EXTREMITIES: No edema upper extremities. Vital Signs Vital Signs Date Time Temp Pulse Resp B/P (MAP) Pulse Ox O2 Delivery O2 Flow Rate FiO2 4/11/20 06:39 97.5 67 18 106/56 (73) 97 Room Air 10/28/19 22:05 10 I&Os I&O- Last 24 Hours up to 6 AM 10/30/19 06:00 Intake Total 2270 ml Balance 2270 ml Laboratory Data Labs 24H Laboratory Tests 2 10/30/19 06:19: Immature Granulocyte % (Auto) 0.2, Neutrophils (%) (Auto) 55.6, Lymphocytes (%) (Auto) 32.6, Monocytes (%) (Auto) 10.2H, Eosinophils (%) (Auto) 0.9, Basophils (%) (Auto) 0.5, Neutrophils # (Auto) 4.8, Lymphocytes # (Auto) 2.8, Monocytes # (Auto) 0.9H, Eosinophils # (Auto) 0.1, Basophils # (Auto) 0.0, Nucleated Red Blood Cells % (auto) 0.0, Anion Gap 4L, Glomerular Filtration Rate > 60.0, Calcium Level 8.4L, Magnesium Level 1.9 CBC/BMP Laboratory Tests 10/30/19 06:19 Microbiology Microbiology 10/28/19 Gram Stain - Final, Resulted 10/28/19 Abscess Culture - Preliminary, Resulted Staphylococcus Aureus 10/28/19 Anaerobic Culture, Resulted Pending 10/28/19 Blood Culture - Preliminary, Resulted No growth after 24 hours . All specim... 10/28/19 Blood Culture - Preliminary, Resulted No growth after 24 hours . All specim... Impression 44-year-old female with large right breast abscess with failed outpatient treatment, admitted to the hospital for incision and drainage of the abscesses done on 10/28/2019 and IV antibiotics. Patient is doing well overall. Her leukocytosis decreased. Wound cultures showed Staphylococcus aureus however the final susceptibilities are not available yet. Blood cultures remain negative -Awaiting sensitivities of wound cultures -Continue IV antibiotics until cultures sensitivities are available -Monitor drainage from the wound. Keep [place] drain in place -Pain control -Monitor WBC -Encourage ambulation and incentive spirometer -Continue DVT prophylaxis with SCDs and subcutaneous heparin -Anticipate discharge tomorrow when the sensitivities are available -Greatly appreciate medical team assistance in managing this patient -Case discussed with nursing staff and with the medical team Plan / VTE VTE Prophylaxis Ordered?: Yes JENY RAI DO Oct 30, 2019 09:57
[2019-10-30 14:00] VITALS: BP 108/59
[2019-10-30 20:09] VITALS: BP 126/68
[2019-10-30] MEDS: FAMOTIDINE 20 MG TAB PO SCH (20:18)
[2019-10-30] MEDS: OLANZapine 2.5MG TABLET PO SCH (20:18)
[2019-10-31] MEDS: CEFTAROLINE FOSAMIL 600 MG in D5W MINI-BAG PLUS 50 ML IV SCH (02:03)
[2019-10-31 06:00] VITALS: BP 138/72
[2019-10-31] MEDS: HEPARIN SOD (PORCINE) 5000 UNITS/ML VIAL (J1644 PER 1000UNITS) SQ SCH (06:00)
[2019-10-31 06:22] LABS: BASO # 0.1 10^3/uL (0.0-0.2); BASO % 0.8 % (0.0-1.0); EOS # 0.2 10^3/uL (0.0-0.5); HEMATOCRIT 37.3 % (36.0-47.0); HEMOGLOBIN 12.4 g/dl (12.0-15.5); LYMPH # 2.5 10^3/uL (1.5-5.0); LYMPH % 31.4 % (24.0-44.0); MEAN CORPUSCULAR HEMOGLOBIN 29.4 pg (27.0-33.0); MEAN CORPUSCULAR HGB CONC 33.2 g/dl (32.0-36.5); MEAN CORPUSCULAR VOLUME 88.4 fl (80.0-96.0); MONO # 0.9 10^3/uL (0.0-0.8); MONO % 11.5 % (0.0-5.0); NEUTROPHILS # 4.3 10^3/uL (1.5-8.5); NEUTROPHILS % 53.9 % (36.0-66.0); PLATELET COUNT, AUTOMATED 327 10^3/uL (150-450); RED BLOOD COUNT 4.22 10^6/uL (4.00-5.40); WHITE BLOOD COUNT 7.9 10^3/uL (4.0-10.0)
[2019-10-31 06:53] LABS: BLOOD UREA NITROGEN 10 MG/DL (7-18); CALCIUM LEVEL 8.7 MG/DL (8.5-10.1); CARBON DIOXIDE LEVEL 32 MEQ/L (21-32); CHLORIDE LEVEL 104 MEQ/L (98-107); CREATININE FOR GFR 0.81 MG/DL (0.55-1.30); GLOMERULAR FILTRATION RATE > 60.0 (>58); GLUCOSE, FASTING 86 MG/DL (70-100); MAGNESIUM LEVEL 2.2 MG/DL (1.8-2.4); POTASSIUM SERUM 4.1 MEQ/L (3.5-5.1); SODIUM LEVEL 140 MEQ/L (136-145)
[2019-10-31] MEDS ORDERED: CLEO300C2 PO ×2 (07:47→09:11)
[2019-10-31] MEDS: OMEPRAZOLE 20 MG CAP PO SCH (08:40)
[2019-10-31] MEDS: DULoxetine 30 MG CAP (CYMBALTA) PO SCH (08:40)
[2019-10-31] MEDS: GABAPENTIN 300 MG CAP PO SCH (08:40)
--- NOTE | 2019-10-31 09:17 | IPNPDOC ---
Subjective General Date Seen: Oct 31, 2019 (9 am) Subject Chief Complaint/History The patient is a 44-year-old female admitted with a reason for visit of Right Breast Abscesses, s/p I&D 10/28/2019, wound culture growing MRSA. Patient is afebrile, leukocytosis resolved. Drainage from the wound is s/s. Patient feels well. Current Medications Current Medications Current Medications Medications (Trade) Dose Ordered Sig/Timothy Route PRN Reason Start Time Stop Time Status Last Admin Dose Admin Acetaminophen (Tylenol Tab) 650 mg Q4H PRN PO PAIN OR FEVER 10/28/19 13:30 10/30/19 20:18 Ceftaroline Fosamil 600 mg/ Dextrose 50 ml @ 50 mls/hr Q12H IV 10/28/19 14:00 10/31/19 02:03 Duloxetine HCl (Cymbalta) 60 mg DAILY PO 10/29/19 09:00 10/31/19 08:40 Famotidine (Pepcid) 20 mg QHS PO 10/29/19 21:00 10/30/19 20:18 Fentanyl Citrate (Sublimaze) 25 mcg Q5MP PRN IV PAIN LEVEL 5-10 10/28/19 22:00 10/28/19 22:59 DC Gabapentin (Neurontin) 600 mg BID PO 10/29/19 09:00 10/31/19 08:40 Heparin Sodium (Porcine) (Heparin) 5,000 units Q8H SQ 10/29/19 14:00 10/29/19 13:15 Heparin Sodium (Porcine) (Heparin) 5,000 units Q8H SQ 10/28/19 14:30 10/29/19 12:21 DC 10/29/19 04:56 Home Med (Med Rec Complete!) ASDIRECTED XX 10/28/19 15:30 10/28/19 15:27 DC Lactated Ringer's 1,000 ml @ 100 mls/hr Q10H IV 10/28/19 22:00 10/28/19 22:59 DC Olanzapine (ZyPREXA) 2.5 mg QHS PO 10/29/19 21:00 10/30/19 20:18 Omeprazole (PriLOSEC) 40 mg DAILY PO 10/29/19 09:00 10/31/19 08:40 Ondansetron HCl (ZOFRAN INJection) 4 mg Q4HP PRN IV NAUSEA OR VOMITING 10/28/19 22:00 10/28/19 22:59 DC Oxycodone HCl (Roxicodone, Oxyir) 5 mg ASDIRECTED PRN PO PAIN LEVEL 1-4 10/28/19 22:00 10/28/19 22:59 DC 10/28/19 22:10 Oxycodone HCl (Roxicodone, Oxyir) 5 mg Q6HP PRN PO PAIN LEVEL 4-7 10/28/19 22:30 Oxycodone HCl (Roxicodone, Oxyir) 10 mg Q4HP PRN PO SEVERE PAIN (PS 8-10) 10/28/19 22:30 Sodium Chloride 1,000 ml @ 60 mls/hr [id number] IV 10/28/19 14:30 10/29/19 23:13 DC 10/29/19 13:20 Allergies Coded Allergies: iodipamide meglumine (Verified Allergy, Severe, DIFFICULTY BREATHING, 10/28/19) cyclobenzaprine (Verified Allergy, Intermediate, ITCH/HIVES, 10/28/19) TAPE (Verified Allergy, Mild, RASH, 10/28/19) hydroxychloroquine (Verified Adverse Reaction, Intermediate, RETINA DETERIORATION, 10/28/19) sulindac (Verified Adverse Reaction, Mild, N/V, ITCH, 10/28/19) tramadol (Verified Adverse Reaction, Mild, DIZZINESS, VISION PROBLEMS, 10/28/19) Objective Physical Examination Examination GENERAL APPEARANCE:not in distress, alert ad oriented. BREAST: right breast is softer. There is still an area of induration and erythema but getting better. There is still some blanching. LUNGS: breathing comfortably on room air HEART: no tachycardia ABDOMEN: nondistended EXTREMITIES: no edema in upper extremities Vital Signs Vital Signs Date Time Temp Pulse Resp B/P (MAP) Pulse Ox O2 Delivery O2 Flow Rate FiO2 10/31/19 06:00 98.6 59 20 138/72 (94) 96 Room Air 10/28/19 22:05 10 I&Os I&O- Last 24 Hours up to 6 AM 10/31/19 05:59 Intake Total 1340 ml Output Total 0 ml Balance 1340 ml Laboratory Data Labs 24H Laboratory Tests 2 10/31/19 06:07: Immature Granulocyte % (Auto) 0.4, Neutrophils (%) (Auto) 53.9, Lymphocytes (%) (Auto) 31.4, Monocytes (%) (Auto) 11.5H, Eosinophils (%) (Auto) 2.0, Basophils (%) (Auto) 0.8, Neutrophils # (Auto) 4.3, Lymphocytes # (Auto) 2.5, Monocytes # (Auto) 0.9H, Eosinophils # (Auto) 0.2, Basophils # (Auto) 0.1, Nucleated Red Blood Cells % (auto) 0.0, Anion Gap 4L, Glomerular Filtration Rate > 60.0, Calcium Level 8.7, Magnesium Level 2.2 CBC/BMP Laboratory Tests 10/31/19 06:07 Microbiology Microbiology 10/28/19 Gram Stain - Final, Resulted 10/28/19 Abscess Culture - Final, Resulted Staph.aureus Methicillin Resis 10/28/19 Anaerobic Culture, Resulted Pending 10/28/19 Blood Culture - Preliminary, Resulted No Growth after 48 hours. All Specime... 10/28/19 Blood Culture - Preliminary, Resulted No Growth after 48 hours. All Specime... Impression 44 year old female with large Right breast abscess, s/p I&D in OR on 10/28/2019, recovering well, wound cultures growing MRSA - stable for discharge home today with oral abx - followup with me in the office next week for check up, we will call patient with the appointment. - case discussed with nursing staff and the medical team Plan / VTE VTE Prophylaxis Ordered?: Yes JENY RAI DO Oct 31, 2019 09:17
--- NOTE | 2019-10-31 09:28 | DS.PDOC ---
Discharge Summary General Date of Admission Oct 28, 2019 at 13:24 Date of Discharge 10/31/2019 Discharge Summary PROCEDURES PERFORMED DURING STAY: Incision and drainage completed on 10/[address] Sams ADMITTING DIAGNOSES / DISCHARGE DIAGNOSES: Breast abscess / Cellulitis Lupus RA / Sjogrens / Fibromyalgia / Bipolar I Disorder / Anxiety / Depression Chronic back pain 2/2 herniated disks Vitamin D deficiency GERD DVT prophylaxis COMPLICATIONS/CHIEF COMPLAINT: Right Breast Abscesses. HISTORY OF PRESENT ILLNESS: Patient is a 44-year-old female with a PMHx of Lupus (off medications x 3 months), RA, Sjgren disease, Fibromyalgia, Bipolar I Disorder, Anxiety / Depression, Chronic back pain 2/2 herniated disks presented to [facility] as a direct admission for right breast abscess. Patient has reported that she had a piercing completed early September of her bilateral nipples. And on October 07 began to notice that she was experiencing redness around her right areola. Patient denied any drainage, but did report some pain. Patient follow-up with her primary care provider had provided her with dicloxacillin 500 mg QID x 8 days. Patient continued antibiotics and completed the course, however, she had failed to improve and had called the emergency room for further instructions. Patient was given another course of the same antibiotics. . She also began to self-medicate with prednisone 5 mg. Patient ultimately followed up by calling into her primary provider who had change antibiotics on 10/24 to clindamycin. She is instructed to follow-up with breast surgery, Dr. Jackson on 10/27. Upon follow-up with breast surgery, she had an ultrasound completed in the office that had revealed a fluid collection which was suggestive of possible abscess. Patient was sent in to [facility] as a direct admission for likely incision and drainage in the OR. HOSPITAL COURSE: Breast abscess / Cellulitis - Patient presented to [facility] as a direct admission for cellulitis / abscess after she had failed antibiotics - Physical reveals improved cellulitis / reduced induration / reduced erythema / [place] drainage catheter present - Wound cultures: + MRSA - Patient had an ultrasound completed as an outpatient today (10/27) , with evidence of fluid collection - s/p I&D with Dr. Jackson on 10/27 - Will DC Ceftaroline (re: SSTI); will continue with Clindamycin as an outpatient for completion of antibiotic course - Dr. Jackson on consultation; appreciate their input; will have outpatient follow up within 7 days. Lupus - Patient has reported that she has been off medications x 3 months - She used to take mycophenolate RA / Sjogrens / Fibromyalgia / Bipolar I Disorder / Anxiety / Depression - Resume home medications Chronic back pain 2/2 herniated disks - c/w Tylenol PRN Vitamin D deficiency - c/w supplementation GERD - c/w Omeprazole DVT prophylaxis - c/w Heparin SQ post-operatively DISCHARGE MEDICATIONS: Please see below. ALLERGIES: Please see below. PHYSICAL EXAMINATION ON DISCHARGE: Vitals (See below) General: Lying in bed, appears comfortable, AAOx3 HEENT: NC, AT CVS: +S1S2 Lungs: Fair air entry b/l, -w/r/r Abdomen: Soft, nondistended and nontender Extremities: No evidence of edema, - Calf tenderness LABORATORY DATA: Please see below. ACTIVITY: [As tolerated]. DISCHARGE PLAN: Patient has been advised to follow-up with her primary care provider and Dr. Patel within 7 dyas Patient has been advised to remain compliant with treatment plan and medications Return to the ER if you experience any problems DISPOSITION: Home DISCHARGE CONDITION: [Stable]. TIME SPENT ON DISCHARGE: 35 minutes Vital Signs/I&Os Vital Signs Date Time Temp Pulse Resp B/P (MAP) Pulse Ox O2 Delivery O2 Flow Rate FiO2 10/31/19 06:00 98.6 59 20 138/72 (94) 96 Room Air 10/28/19 22:05 10 I&O- Last 24 Hours up to 6 AM 10/31/19 06:00 Intake Total 1160 ml Output Total 0 ml Balance 1160 ml Laboratory Data Labs 24H Laboratory Tests 2 10/31/19 06:07: Immature Granulocyte % (Auto) 0.4, Neutrophils (%) (Auto) 53.9, Lymphocytes (%) (Auto) 31.4, Monocytes (%) (Auto) 11.5H, Eosinophils (%) (Auto) 2.0, Basophils (%) (Auto) 0.8, Neutrophils # (Auto) 4.3, Lymphocytes # (Auto) 2.5, Monocytes # (Auto) 0.9H, Eosinophils # (Auto) 0.2, Basophils # (Auto) 0.1, Nucleated Red Blood Cells % (auto) 0.0, Anion Gap 4L, Glomerular Filtration Rate > 60.0, Calcium Level 8.7, Magnesium Level 2.2 CBC/BMP Laboratory Tests 10/31/19 06:07 Microbiology Microbiology 10/28/19 Gram Stain - Final, Resulted 10/28/19 Abscess Culture - Final, Resulted Staph.aureus Methicillin Resis 10/28/19 Anaerobic Culture, Resulted Pending 10/28/19 Blood Culture - Preliminary, Resulted No Growth after 48 hours. All Specime... 10/28/19 Blood Culture - Preliminary, Resulted No Growth after 48 hours. All Specime... Discharge Medications Scheduled Clindamycin Hcl (Cleocin HCl) 300 Mg Capsule, 300 MG PO QID Complete current supply (4 days) and additional 7 days more Cyclosporine (Restasis) 0.05% Droperette, 1 DROP OU DAILY, (Reported) Duloxetine Hcl (Duloxetine HCl) 60 Mg Capsule.dr, 60 MG PO DAILY, (Reported) Famotidine (Famotidine) 20 Mg Tablet, 20 MG PO QHS, (Reported) Gabapentin (Gabapentin) 600 Mg Tablet, 600 MG PO BID, (Reported) Olanzapine (Olanzapine) 2.5 Mg Tablet, 2.5 MG PO QHS, (Reported) Omeprazole (Omeprazole) 40 Mg Capsule.dr, 40 MG PO DAILY, (Reported) [[employer]] , 2 CHEW PO DAILY, (Reported) Scheduled PRN Acetaminophen (Acetaminophen) 500 Mg Tablet, 1,000 MG PO Q6H PRN for PAIN, (Reported) Ibuprofen (Ibu-200) 200 Mg Tablet, 400 MG PO Q8H PRN for PAIN, (Reported) Allergies Coded Allergies: iodipamide meglumine (Verified Allergy, Severe, DIFFICULTY BREATHING, 10/28/19) cyclobenzaprine (Verified Allergy, Intermediate, ITCH/HIVES, 10/28/19) TAPE (Verified Allergy, Mild, RASH, 10/28/19) hydroxychloroquine (Verified Adverse Reaction, Intermediate, RETINA D ETERIORATION, 10/28/19) sulindac (Verified Adverse Reaction, Mild, N/V, ITCH, 10/28/19) tramadol (Verified Adverse Reaction, Mild, DIZZINESS, VISION PROBLEMS, 10/28/19) DREW DO MD Oct 31, 2019 09:27
== END 2019-10-31 10:25 | disposition home or self-care (01) | DRG 600 ==
LOC: M MS5PR 13:04 → OBSVTOIN 13:24 → EEVIPCON 13:24
PROVIDERS: ADMIT Internal Medicine; ATTEND Internal Medicine
PROC: 0H9T30Z Drainage of Right Breast with Drainage Device, Percutaneous Approach (ICD-10-PCS; principal; 2019-10-28 19:00)
DX: N61.1 Abscess of the breast and nipple (principal); Q87.19 Other congenital malformation syndromes predominantly associated with short stature; N61.0 Mastitis without abscess; K21.9 Gastro-esophageal reflux disease without esophagitis; E55.9 Vitamin D deficiency, unspecified; F31.9 Bipolar disorder, unspecified; F41.9 Anxiety disorder, unspecified; M32.10 Systemic lupus erythematosus, organ or system involvement unspecified; M79.7 Fibromyalgia; M06.9 Rheumatoid arthritis, unspecified; M35.00 Sjogren syndrome, unspecified; Z79.899 Other long term (current) drug therapy; Z88.8 Allergy status to other drugs, medicaments and biological substances; M51.26 Other intervertebral disc displacement, lumbar region

== ENCOUNTER → 2019-11-19 | Outpatient (CLI) | payer MEDICARE, MEDICAID ==
[~2019-11-19] MED LIST changes: +ACET-683 PO; +CLEO300C2 PO; +DULO1CAP6 PO; +FAMO20TA PO; +GABA600T4 PO; +IBUP200T45 PO; +OLAN2.5T25 PO; +OMEP-221 PO; +PRED5TA PO; +[UNRECOGNIZED DRUG - OTHER] PO
== END ==
LOC: M PLALAB 13:55
PROVIDERS: ATTEND Surgery
DX: Z80.3 Family history of malignant neoplasm of breast (principal); Z80.0 Family history of malignant neoplasm of digestive organs; Z80.1 Family history of malignant neoplasm of trachea, bronchus and lung

== ENCOUNTER 2019-12-09 01:28 | Emergency (ER) | payer MEDICAID, MEDICARE ==
[~2019-12-09] VITALS: Ht 165.1 cm; Wt 96.3 kg
[2019-12-09 10:38] VITALS: BP 125/80
== END 2019-12-09 10:41 ==
LOC: M ED 01:28
DX: F31.4 Bipolar disorder, current episode depressed, severe, without psychotic features (principal); R45.851 Suicidal ideations; K21.9 Gastro-esophageal reflux disease without esophagitis

== ENCOUNTER 2021-04-16 17:01 | Emergency (ER) | payer MEDICARE, OTHER ==
[~2021-04-16] VITALS: Ht 165.1 cm; Wt 104.5 kg
[~2021-04-16 17:01] MED LIST changes: +CYAN500T14 PO; -CYAN500T8 PO; +MONT10TA10 PO; -MONT10TA4 PO; +OLAN1TAB16 PO; -OLAN5TAB PO
[2021-04-16] MEDS ORDERED: hydroxizine PO (17:49)
[2021-04-16] MEDS ORDERED: OLAN1TAB16 PO (21:50)
[2021-04-16] MEDS ORDERED: OLANZapine 5 MG TAB PO ONE (21:55)
[2021-04-16 22:10] VITALS: BP 127/76
== END 2021-04-16 22:12 | disposition home or self-care (01) ==
LOC: M ED 17:01
DX: Z76.0 Encounter for issue of repeat prescription (principal); F41.9 Anxiety disorder, unspecified; F31.9 Bipolar disorder, unspecified; E03.9 Hypothyroidism, unspecified; M79.7 Fibromyalgia; Z79.899 Other long term (current) drug therapy; Z88.8 Allergy status to other drugs, medicaments and biological substances

== ENCOUNTER → 2021-06-26 | Outpatient (CLI) | payer OTHER ==
[~2021-06-26] MED LIST changes: -CYMB60CA3 PO; +CYMB60CA4 PO; -IBUP200T45 PO; +IBUP200T46 PO; +hydroxizine PO
[2021-06-26 15:42] LABS: PLATELET COUNT, AUTOMATED 271 10^3/uL (150-450)
[2021-06-26 15:46] LABS: INR 0.9; PARTIAL THROMBOPLASTIN TIME 29.6 SECONDS (25.9-37.0); PROTHROMBIN TIME 12.5 SECONDS (12.7-14.5)
== END ==
LOC: M PLALAB 13:29
PROVIDERS: ATTEND Physical Medicine & Rehabilitation
DX: M48.061 Spinal stenosis, lumbar region without neurogenic claudication (principal)

== ENCOUNTER → 2022-03-26 | Outpatient (REF) ==
[~2022-03-26] MED LIST changes: -MONT10TA10 PO; +MONT10TA97 PO; -OMEP-221 PO; +OMEP40CA5 PO
== END ==
LOC: M PLALAB 12:37
PROVIDERS: ATTEND Internal Medicine
DX: M51.36 Other intervertebral disc degeneration, lumbar region (principal); M51.37 Other intervertebral disc degeneration, lumbosacral region

== ENCOUNTER → 2022-04-02 | Outpatient (REF) | payer MEDICARE, MEDICAID ==
[2022-04-02 17:19] LABS: APPEARANCE, URINE MANUAL CLEAR (CLEAR); COLOR, URINE MANUAL YELLOW (YELLOW)
[2022-04-02 17:20] LABS: PH,URINE MAN 6.5 UNITS (5.0 - 7.0)
[2022-04-02 17:21] LABS: BASO % 0.4 % (0.0-1.0); BILIRUBIN, URINE MANUAL NEGATIVE (NEGATIVE); BLOOD URINE MANUAL NEGATIVE (NEGATIVE); EOS % 0.1 % (0.0-3.0); GLUCOSE, URINE (UA) MANUAL NEGATIVE (NEGATIVE); HEMATOCRIT 43.1 % (36.0-47.0); HEMOGLOBIN 14.4 g/dl (12.0-15.5); KETONE, URINE MANUAL NEGATIVE (NEGATIVE); LEUKOCYTE ESTERASE, URINE MAN NEGATIVE (NEGATIVE); LYMPH # 2.1 10^3/uL (1.5-5.0); LYMPH % 27.3 % (24.0-44.0); MEAN CORPUSCULAR HEMOGLOBIN 28.8 pg (27.0-33.0); MEAN CORPUSCULAR HGB CONC 33.4 g/dl (32.0-36.5); MEAN CORPUSCULAR VOLUME 86.2 fl (80.0-96.0); MONO # 0.5 10^3/uL (0.0-0.8); MONO % 6.9 % (2.0-8.0); NEUTROPHILS % 64.9 % (36.0-66.0); NITRITE, URINE MANUAL NEGATIVE (NEGATIVE); PLATELET COUNT, AUTOMATED 275 10^3/uL (150-450); PROTEIN, URINE MANUAL NEGATIVE (NEGATIVE); UROBILINOGEN, URINE MANUAL NORMAL (NORMAL); WHITE BLOOD COUNT 7.7 10^3/uL (4.0-10.0)
[2022-04-02 17:41] LABS: TOTAL PROTEIN,RANDOM URINE 13.5 MG/DL (0.0-12.0)
[2022-04-02 17:47] LABS: ALBUMIN 3.8 GM/DL (3.2-5.2); ALT/SGPT 21 U/L (12-78); BILIRUBIN,TOTAL 0.4 MG/DL (0.2-1.0); BLOOD UREA NITROGEN 8 MG/DL (7-18); CALCIUM LEVEL 9.2 MG/DL (8.5-10.1); CARBON DIOXIDE LEVEL 31 MEQ/L (21-32); CHLORIDE LEVEL 103 MEQ/L (98-107); COMPLEMENT C3 157 MG/DL (90-180); COMPLEMENT C4 28 MG/DL (10-40); CREATININE FOR GFR 0.82 MG/DL (0.55-1.30); GLOMERULAR FILTRATION RATE > 60.0 (>58); GLUCOSE, FASTING 86 MG/DL (70-100); POTASSIUM SERUM 3.7 MEQ/L (3.5-5.1); SODIUM LEVEL 137 MEQ/L (136-145); TOTAL PROTEIN 6.9 GM/DL (6.4-8.2)
[2022-04-02 17:52] LABS: ERYTHROCYTE SEDIMENTATION RATE 13 mm/hr (0-20)
== END ==
LOC: M SFHCRHEU 13:24
PROVIDERS: ATTEND Internal Medicine Rheumatology
DX: M35.01 Sjogren syndrome with keratoconjunctivitis (principal); M79.7 Fibromyalgia

== ENCOUNTER → 2022-04-08 | Outpatient (CLI) | payer MEDICARE, MEDICAID | LOC: M CARPUL 12:53 | PROVIDERS: ATTEND Internal Medicine Rheumatology | DX: M35.01 Sjogren syndrome with keratoconjunctivitis (principal); M79.7 Fibromyalgia ==

== ENCOUNTER → 2023-05-19 | Outpatient (REF) | payer MEDICARE, MEDICAID ==
[~2023-05-19] MED LIST changes: -BENZ-52 PO; +BENZ1TAB5 PO
== END ==
LOC: M LAB REF 17:28
PROVIDERS: ATTEND Internal Medicine Endocrinology, Diabetes & Metabolism
DX: E04.1 Nontoxic single thyroid nodule (principal)

== ENCOUNTER → 2023-05-21 | Outpatient (REF) | payer MEDICARE, MEDICAID ==
[2023-05-21 12:26] LABS: HEMATOCRIT 36.1 % (36.0-47.0); HEMOGLOBIN 11.3 g/dl (12.0-15.5); LYMPH # 1.8 10^3/uL (1.5-5.0); LYMPH % 31.6 % (24.0-44.0); MEAN CORPUSCULAR HEMOGLOBIN 25.4 pg (27.0-33.0); MEAN CORPUSCULAR HGB CONC 31.3 g/dl (32.0-36.5); MEAN CORPUSCULAR VOLUME 81.1 fl (80.0-96.0); MONO # 0.4 10^3/uL (0.0-0.8); MONO % 6.8 % (2.0-8.0); NEUTROPHILS # 3.5 10^3/uL (1.5-8.5); NEUTROPHILS % 61.4 % (36.0-66.0); PLATELET COUNT, AUTOMATED 222 10^3/uL (150-450); RED BLOOD COUNT 4.45 10^6/uL (4.00-5.40); WHITE BLOOD COUNT 5.8 10^3/uL (4.0-10.0)
[2023-05-21 12:33] LABS: APPEARANCE, URINE HAZY (CLEAR); BACTERIA, URINE AUTO NEGATIVE (NEGATIVE); BILIRUBIN, URINE AUTO NEGATIVE (NEGATIVE); BLOOD, URINE BLOOD NEGATIVE (NEGATIVE); COLOR, URINE YELLOW (YELLOW); GLUCOSE, URINE (UA) AUTO NEGATIVE (NEGATIVE); KETONE, URINE AUTO NEGATIVE (NEGATIVE); LEUKOCYTE ESTERASE, URINE AUTO NEGATIVE (NEGATIVE); MUCUS, URINE SMALL (NEGATIVE); NITRITE, URINE AUTO NEGATIVE (NEGATIVE); PROTEIN, URINE AUTO NEGATIVE (NEGATIVE); RBC, URINE AUTO 2 /HPF (0-3); SPECIFIC GRAVITY URINE AUTO 1.017 (1.002-1.035); SQUAMOUS EPITHELIAL CELL UR AU 7 /HPF (0-6); UROBILINOGEN, URINE AUTO 0.2 mg/dL (0.0-2.0); WBC, URINE AUTO 3 /HPF (0-3)
[2023-05-21 12:36] LABS: ERYTHROCYTE SEDIMENTATION RATE 15 mm/hr (0-20)
[2023-05-21 12:48] LABS: TOTAL PROTEIN,RANDOM URINE 17.8 MG/DL (0.0-14.0)
[2023-05-21 12:52] LABS: C REACTIVE PROTEIN QUANTITATIV < 0.40 MG/DL (<1.0)
[2023-05-21 12:53] LABS: CREATININE,RANDOM URINE 109.8 MG/DL
[2023-05-21 12:54] LABS: ALBUMIN 3.5 G/DL (3.2-5.2); ALKALINE PHOSPHATASE 87 U/L (46-116); ALT/SGPT 29 U/L (7.0-40); AST/SGOT 31 U/L (<34); BILIRUBIN,TOTAL 0.5 MG/DL (0.3-1.2); BLOOD UREA NITROGEN 14 MG/DL (9-23); CALCIUM LEVEL 8.9 MG/DL (8.5-10.1); CARBON DIOXIDE LEVEL 30 MMOL/L (20-31); CHLORIDE LEVEL 106 MMOL/L (98-107); CREATININE FOR GFR 0.81 MG/DL (0.55-1.30); GLOMERULAR FILTRATION RATE > 60.0 (>58); GLUCOSE, FASTING 94 MG/DL (60-100); POTASSIUM SERUM 3.9 MMOL/L (3.5-5.1); SODIUM LEVEL 143 MMOL/L (136-145); TOTAL PROTEIN 6.4 G/DL (5.7-8.2)
[2023-05-21 12:55] LABS: COMPLEMENT C3 153.3 MG/DL (90.0-170.0); COMPLEMENT C4 24.7 MG/DL (12-36)
== END ==
LOC: M SFHCRHEU 11:08
PROVIDERS: ATTEND Internal Medicine Rheumatology
DX: M35.01 Sjogren syndrome with keratoconjunctivitis (principal); M79.7 Fibromyalgia

== ENCOUNTER → 2023-10-09 | Outpatient (REF) | payer OTHER, MEDICAID ==
[2023-10-09 12:56] LABS: APPEARANCE, URINE HAZY (CLEAR); BACTERIA, URINE AUTO NEGATIVE (NEGATIVE); BILIRUBIN, URINE AUTO NEGATIVE (NEGATIVE); BLOOD, URINE BLOOD NEGATIVE (NEGATIVE); COLOR, URINE YELLOW (YELLOW); GLUCOSE, URINE (UA) AUTO NEGATIVE (NEGATIVE); KETONE, URINE AUTO NEGATIVE (NEGATIVE); LEUKOCYTE ESTERASE, URINE AUTO TRACE (NEGATIVE); MUCUS, URINE SMALL (NEGATIVE); NITRITE, URINE AUTO NEGATIVE (NEGATIVE); PROTEIN, URINE AUTO 1+ mg/dL (NEGATIVE); RBC, URINE AUTO 2 /HPF (0-3); SPECIFIC GRAVITY URINE AUTO 1.023 (1.002-1.035); SQUAMOUS EPITHELIAL CELL UR AU 14 /HPF (0-6); UROBILINOGEN, URINE AUTO 0.2 mg/dL (0.0-2.0); WBC, URINE AUTO 4 /HPF (0-3)
[2023-10-09 13:02] LABS: TOTAL PROTEIN,RANDOM URINE 20.8 MG/DL (0.0-14.0)
[2023-10-09 13:07] LABS: CREATININE,RANDOM URINE 192.8 MG/DL
[2023-10-09 13:40] LABS: BASO % 0.2 % (0.0-1.0); HEMOGLOBIN 12.8 g/dl (12.0-15.5); LYMPH # 2.7 10^3/uL (1.5-5.0); MEAN CORPUSCULAR HEMOGLOBIN 25.7 pg (27.0-33.0); MEAN CORPUSCULAR VOLUME 80.2 fl (80.0-96.0); MONO # 0.6 10^3/uL (0.0-0.8); MONO % 9.5 % (2.0-8.0); NEUTROPHILS # 2.6 10^3/uL (1.5-8.5); NEUTROPHILS % 44.1 % (36.0-66.0); PLATELET COUNT, AUTOMATED 206 10^3/uL (150-450); RED BLOOD COUNT 4.99 10^6/uL (4.00-5.40); WHITE BLOOD COUNT 5.8 10^3/uL (4.0-10.0)
[2023-10-09 13:56] LABS: ERYTHROCYTE SEDIMENTATION RATE 11 mm/hr (0-20)
[2023-10-09 13:57] LABS: C REACTIVE PROTEIN QUANTITATIV < 0.40 MG/DL (<1.0)
[2023-10-09 13:58] LABS: ALKALINE PHOSPHATASE 78 U/L (46-116); ALT/SGPT 32 U/L (7.0-40); AST/SGOT 17 U/L (<34); BILIRUBIN,TOTAL 0.7 MG/DL (0.3-1.2); BLOOD UREA NITROGEN 15 MG/DL (9-23); CARBON DIOXIDE LEVEL 29 MMOL/L (20-31); CHLORIDE LEVEL 104 MMOL/L (98-107); COMPLEMENT C3 147.3 MG/DL (90.0-170.0); COMPLEMENT C4 23.6 MG/DL (12-36); CREATININE FOR GFR 0.81 MG/DL (0.55-1.30); GLOMERULAR FILTRATION RATE > 60.0 (>58); GLUCOSE, FASTING 87 MG/DL (60-100); POTASSIUM SERUM 3.9 MMOL/L (3.5-5.1); SODIUM LEVEL 137 MMOL/L (136-145); TOTAL PROTEIN 6.3 G/DL (5.7-8.2)
== END ==
LOC: M SFHCRHEU 10:39
PROVIDERS: ATTEND Internal Medicine Rheumatology
DX: M35.01 Sjogren syndrome with keratoconjunctivitis (principal); M79.7 Fibromyalgia

== ENCOUNTER → 2024-03-15 | Outpatient (REF) | payer OTHER, MEDICAID | LOC: M LAB REF 15:23 | PROVIDERS: ATTEND Internal Medicine Endocrinology, Diabetes & Metabolism | DX: E04.1 Nontoxic single thyroid nodule (principal) ==

== ENCOUNTER 2025-01-25 11:06 | Outpatient (CLI) | payer OTHER, MEDICAID ==
[~2025-01-25] VITALS: Ht 165.1 cm; Wt 84.2 kg
[2025-01-25 11:00] VITALS: BP 112/57; O2SAT 100
[~2025-01-25 11:06] MED LIST changes: +ACETAMINOPHEN 650 MG PO PRN; +GABA-1490 PO; -GABA600T4 PO; -OLAN2.5T25 PO; +OLAN2.5T53 PO
[2025-01-25] MEDS: FAMOTIDINE 20 MG/2 ML VIAL IV ONE (11:29)
[2025-01-25] MEDS: NS (Normal Saline) 0.9% 1,000 ML IV SCH (11:29)
[2025-01-25] MEDS: ONDANSETRON 4MG 2ML VIAL IV PRN (11:33)
[2025-01-25] MEDS: MULTIVITAMIN -ADULT INJECTION 10 ML, FOLIC ACID 1 MG, THIAMINE INJection 100 MG, MAGNES... IV ONE (14:39)
[2025-01-25 16:02] VITALS: BP 129/78; O2SAT 100
== END 2025-01-25 16:00 ==
LOC: M INFU 11:06
PROVIDERS: ATTEND Physician Assistant Surgical
DX: E86.0 Dehydration (principal); Z88.5 Allergy status to narcotic agent; Z88.8 Allergy status to other drugs, medicaments and biological substances; Z91.048 Other nonmedicinal substance allergy status
CPT/HCPCS: 96361; 96365; J1308; J1808; J2405; J3411; J3475

== ENCOUNTER 2025-02-01 10:38 | Outpatient (CLI) | payer OTHER, MEDICAID ==
[~2025-02-01] VITALS: Ht 165.1 cm; Wt 83.6 kg
[~2025-02-01 10:38] MED LIST changes: -ACETAMINOPHEN 650 MG PO PRN
[2025-02-01] MEDS ORDERED: FAMOTIDINE IV BAG 20 MG in IV 1 EA IV ONE (11:00)
[2025-02-01] MEDS ORDERED: ACETAMINOPHEN 325 MG TAB PO PRN (11:00)
[2025-02-01 11:05] VITALS: BP 132/71; O2SAT 100
[2025-02-01] MEDS: NS (Normal Saline) 0.9% 1,000 ML IV SCH (11:07)
[2025-02-01] MEDS: ONDANSETRON 4MG 2ML VIAL IV PRN (12:43)
[2025-02-01] MEDS: FAMOTIDINE 20 MG/2 ML VIAL IV ONE (14:12)
[2025-02-01] MEDS: MULTIVITAMIN -ADULT INJECTION 10 ML, FOLIC ACID 1 MG, THIAMINE INJection 100 MG, MAGNES... IV ONE (14:12)
[2025-02-01 15:25] VITALS: BP 117/67; O2SAT 98
== END 2025-02-01 15:22 ==
LOC: M INFU 10:38
PROVIDERS: ATTEND Physician Assistant Surgical
DX: E86.0 Dehydration (principal); Z88.8 Allergy status to other drugs, medicaments and biological substances; Z88.5 Allergy status to narcotic agent; Z91.048 Other nonmedicinal substance allergy status
CPT/HCPCS: 96361; 96365; 96375; J1308; J1808; J2405; J3411; J3475

== ENCOUNTER → 2025-03-10 | Outpatient (CLI) | payer OTHER, MEDICAID | LOC: M SLEEP HO 10:29 | PROVIDERS: ATTEND Physician Assistant | DX: G47.33 Obstructive sleep apnea (adult) (pediatric) (principal) ==

== ENCOUNTER → 2025-03-28 | Outpatient (CLI) | payer OTHER, MEDICAID ==
[~2025-03-28] VITALS: Ht 165.1 cm; Wt 78.2 kg
[~2025-03-28] MED LIST changes: +ACETAMINOPHEN 325 MG TAB PO PRN; +ONDANSETRON 4MG 2ML VIAL IV PRN
[2025-03-28 11:15] VITALS: BP 120/69; O2SAT 99
[2025-03-28] MEDS: NS (Normal Saline) 0.9% 1,000 ML IV SCH (11:27)
[2025-03-28] MEDS: FAMOTIDINE 20 MG/2 ML VIAL IV ONE (15:03)
[2025-03-28] MEDS: MULTIVITAMIN -ADULT INJECTION 10 ML, FOLIC ACID 1 MG, THIAMINE INJection 100 MG, MAGNES... IV ONE (15:03)
[2025-03-28 16:22] VITALS: BP 147/81; O2SAT 99
== END ==
LOC: M INFU 10:43
PROVIDERS: ATTEND Physician Assistant Surgical
DX: E86.0 Dehydration (principal); Z88.5 Allergy status to narcotic agent; Z88.8 Allergy status to other drugs, medicaments and biological substances; Z91.048 Other nonmedicinal substance allergy status
CPT/HCPCS: 96360; 96361; J1308; J1808; J3411; J3475

== ENCOUNTER 2025-04-11 09:32 | Outpatient (CLI) | payer OTHER, MEDICAID ==
[~2025-04-11] VITALS: Ht 165.1 cm; Wt 79.5 kg
[~2025-04-11 09:32] MED LIST changes: -ACETAMINOPHEN 325 MG TAB PO PRN; -ONDANSETRON 4MG 2ML VIAL IV PRN
[2025-04-11 09:51] VITALS: BP 116/60; O2SAT 99
[2025-04-11] MEDS: NS (Normal Saline) 0.9% 1,000 ML IV SCH (09:57)
[2025-04-11] MEDS ORDERED: ACETAMINOPHEN 325 MG TAB PO PRN (10:00)
[2025-04-11] MEDS ORDERED: ONDANSETRON 4MG 2ML VIAL IV PRN (10:00)
[2025-04-11] MEDS: FAMOTIDINE 20 MG/2 ML VIAL IV ONE (13:04)
[2025-04-11] MEDS: MULTIVITAMIN -ADULT INJECTION 10 ML, FOLIC ACID 1 MG, THIAMINE INJection 100 MG, MAGNES... IV ONE (13:04)
[2025-04-11 14:20] VITALS: BP 113/75; O2SAT 100
== END 2025-04-11 14:20 | disposition home or self-care (01) ==
LOC: M INFU 09:32
PROVIDERS: ATTEND Physician Assistant Surgical
DX: E86.0 Dehydration (principal); Z88.8 Allergy status to other drugs, medicaments and biological substances; Z88.5 Allergy status to narcotic agent; Z91.048 Other nonmedicinal substance allergy status
CPT/HCPCS: 96360; 96361; J1308; J1808; J3411; J3475

== ENCOUNTER 2025-05-09 09:07 | Outpatient (CLI) | payer OTHER, MEDICAID ==
[~2025-05-09] VITALS: Ht 162.6 cm; Wt 76.3 kg
[2025-05-09 09:30] VITALS: BP 114/62; O2SAT 100
[2025-05-09] MEDS: NS (Normal Saline) 0.9% 1,000 ML IV SCH (09:34)
[2025-05-09] MEDS ORDERED: ONDANSETRON 4MG 2ML VIAL IV PRN (10:00)
[2025-05-09] MEDS ORDERED: ACETAMINOPHEN 325 MG TAB PO PRN (10:00)
[2025-05-09] MEDS: FAMOTIDINE 20 MG/2 ML VIAL IV ONE (10:35)
[2025-05-09] MEDS: MULTIVITAMIN -ADULT INJECTION 10 ML, FOLIC ACID 1 MG, THIAMINE INJection 100 MG, MAGNES... IV ONE (11:41)
[2025-05-09 13:45] VITALS: BP 101/57; O2SAT 100
== END 2025-05-09 13:45 | disposition home or self-care (01) ==
LOC: M INFU 09:07
PROVIDERS: ATTEND Physician Assistant Surgical
DX: E86.0 Dehydration (principal); Z88.5 Allergy status to narcotic agent; Z88.6 Allergy status to analgesic agent; Z88.8 Allergy status to other drugs, medicaments and biological substances; Z91.048 Other nonmedicinal substance allergy status
CPT/HCPCS: 96360; 96361; J1308; J1808; J3411; J3475

== ENCOUNTER 2025-05-23 09:25 | Outpatient (CLI) | payer OTHER, MEDICAID ==
[~2025-05-23] VITALS: Ht 165.1 cm; Wt 77.3 kg
[2025-05-23 09:50] VITALS: BP 104/50; O2SAT 100
[2025-05-23] MEDS: NS (Normal Saline) 0.9% 1,000 ML IV SCH (09:57)
[2025-05-23] MEDS ORDERED: ACETAMINOPHEN 325 MG TAB PO PRN (10:00)
[2025-05-23] MEDS ORDERED: ONDANSETRON 4MG/2ML VIAL IV PRN (10:00)
[2025-05-23] MEDS: MULTIVITAMIN -ADULT INJECTION 10 ML, FOLIC ACID 1 MG, THIAMINE INJection 100 MG, MAGNES... IV ONE (13:12)
[2025-05-23] MEDS: FAMOTIDINE 20 MG/2 ML VIAL IV ONE (13:30)
[2025-05-23 14:20] VITALS: BP 121/63; O2SAT 100
== END 2025-05-23 14:30 | disposition home or self-care (01) ==
LOC: M INFU 09:25
PROVIDERS: ATTEND Physician Assistant Surgical
DX: E86.0 Dehydration (principal); Z88.5 Allergy status to narcotic agent; Z88.8 Allergy status to other drugs, medicaments and biological substances; Z91.09 Other allergy status, other than to drugs and biological substances
CPT/HCPCS: 96360; 96361; J1308; J1808; J3411; J3475

== ENCOUNTER 2025-06-28 07:59 | Outpatient (CLI) | payer OTHER, MEDICAID ==
[~2025-06-28] VITALS: Ht 165.1 cm; Wt 71.8 kg
[2025-06-28] MEDS ORDERED: ACETAMINOPHEN 325 MG TAB PO PRN (08:00)
[2025-06-28] MEDS ORDERED: ONDANSETRON 4MG/2ML VIAL IV PRN (08:00)
[2025-06-28 08:10] VITALS: BP 119/56; O2SAT 98
[2025-06-28] MEDS: NS (Normal Saline) 0.9% 1,000 ML IV SCH (08:22)
[2025-06-28] MEDS: MULTIVITAMIN -ADULT INJECTION 10 ML, FOLIC ACID 1 MG, THIAMINE INJection 100 MG, MAGNES... IV ONE (11:27)
[2025-06-28] MEDS: FAMOTIDINE 20 MG TAB PO ONE (11:27)
[2025-06-28 12:55] VITALS: BP 135/75; O2SAT 100
== END 2025-06-28 12:55 | disposition home or self-care (01) ==
LOC: M INFU 07:59
PROVIDERS: ATTEND Surgery
DX: E86.0 Dehydration (principal); Z88.5 Allergy status to narcotic agent; Z88.8 Allergy status to other drugs, medicaments and biological substances; Z91.09 Other allergy status, other than to drugs and biological substances
CPT/HCPCS: 96360; 96361; J1808; J3411; J3475

== ENCOUNTER 2025-07-20 12:02 | Outpatient (CLI) | payer OTHER, MEDICAID ==
[~2025-07-20] VITALS: Ht 165.1 cm; Wt 72.0 kg
[~2025-07-20 12:02] MED LIST changes: +ACETAMINOPHEN 325 MG TAB PO PRN; +ONDANSETRON 4MG/2ML VIAL IV PRN
[2025-07-20 12:15] VITALS: BP 99/56; O2SAT 100
[2025-07-20] MEDS: FAMOTIDINE 20 MG TAB PO ONE (12:19)
[2025-07-20] MEDS: NS (Normal Saline) 0.9% 1,000 ML IV SCH (12:19)
[2025-07-20] MEDS: MULTIVITAMIN -ADULT INJECTION 10 ML, FOLIC ACID 1 MG, THIAMINE INJection 100 MG, MAGNES... IV ONE (15:26)
[2025-07-20 16:00] VITALS: BP 125/68; O2SAT 100
== END 2025-07-20 16:00 | disposition home or self-care (01) ==
LOC: M INFU 12:02
PROVIDERS: ATTEND Surgery
DX: E86.0 Dehydration (principal); Z88.5 Allergy status to narcotic agent; Z88.8 Allergy status to other drugs, medicaments and biological substances; Z91.048 Other nonmedicinal substance allergy status
CPT/HCPCS: 96361; 96365; J1808; J3411; J3475